=== PATIENT | male | born 1990 | race Caucasian/White ===

== ENCOUNTER 2018-07-26 17:26 | Emergency (ER) | payer SELFPAY ==
[2018-07-26 17:28] VITALS: BP 142/82; PULSE 115; RESP 17; TEMP 36.8; O2SAT 96
--- NOTE | 2018-07-26 17:44 | DI.CT_ITS ---
SYMPTOM/DIAGNOSIS: H/O SPINA BIFIDA, SCOLIOSIS, NUMBNESS AROUND RECTUM THORACIC SPINE CT: Multiple contiguous axial images of the thoracic spine were obtained following the uneventful administration of intravenous contrast material. There is normal alignment of the thoracic spine. The vertebral bodies, disc spaces and posterior elements are intact and well maintained. The bones are normally mineralized. Soft tissues are unremarkable. No enhancing lesions are seen. IMPRESSION: Negative examination of the thoracic spine. LUMBAR SPINE CT: Multiple contiguous axial images of the lumbar spine were obtained. Sagittal and coronal reformatted images were performed following the uneventful administration of intravenous contrast material. There is normal alignment of the lumbar spine. No acute fractures or subluxations are seen. Note is made of a Schmorl's node at the inferior endplate of L 1. There is a bifid spinous process at S 1. No enhancing lesions are seen. No central spinal canal or neural foraminal stenosis is present. IMPRESSION: No acute abnormality. No enhancing lesion is identified.
[2018-07-26] MEDS: Normal Saline 1,000 ML 1000 ML IV (18:05)
--- NOTE | 2018-07-26 18:09 | W.ED.GENAD ---
Discharge Plan Disposition Patient Disposition: HOME Condition: Stable Discharge Details Chief Complaint: Orthopedic Clinical Impression: Back pain, Numbness and tingling of left leg Primary Care Provider: Rafael Strong ED Provider: Greg Gracia Home Meds and New Rx's Prescriptions: No Action hydroxyzine HCl 50 mg Tablet 50 mg PO HS RF: 0 buprenorphine-naloxone [Suboxone] 4-1 mg Film 1 film BUCCAL Q24H RF: 0 Discharge Instructions Instructions: Lumbar Disc Herniation (ED), Back Pain (ED) Additional Instructions: Please immediately follow-up with your primary care provider. We will contact them for our recommendation for an MRI, however we recommend that you discuss it with them as well. If you notice any numbness or tingling in your groin area, any loss of control for having a bowel or bladder movement, any worsening of your pain, any weakness of your lower extremities please return immediately. Although it is not our recommendation that you leave at this time we will contact you with your results. If you notice any worsening of your symptoms, or any new symptoms such as vomiting, diarrhea, fever, chills, shortness of breath, chest pain, numbness, weakness, or fainting , please return immediately to the emergency department for reevaluation. Please follow up with your primary care provider as soon as possible for reassessment and reevaluation. As always, it was a pleasure participating in your medical care today. Stand Alone Forms: Work Release Referrals: Rafael Strong [Primary Care Provider] - Medical Decision Making This is a 28-year-old male who presents for evaluation of chronic anterior thigh tingling and new Martinez rectal and right posterior buttock tingling. The patient is an IV drug user, and injects regularly. He does admit to chills, but denies any fever. He does admit to difficulty getting all of his urine out unless he sits. He does have a history of spina bifida as well as scoliosis. Physical exam findings demonstrate no decreased deep tendon reflexes, no lack of sensation in the saddle region or the rectal region. Normal rectal tone. He does have 56 mL's of urine in his post void residual. He shows no weakness, and has normal sensation and movement of his lower extremities. No midline cervical thoracic or lumbar spine tenderness. Patient is tachycardic here, he does have subjective chills at home, and he is high risk with IV drug use. Were unable to get an MRI at this time. We will get a CT scan with contrast to evaluate for any acute process in the spine, as well as laboratory workup to rule in or rule out potential significant infectious etiology. We will rehydrate the patient as well. Differential is broad and may be just related to his chronic scoliosis and spina bifida as well as just peripheral nerve entrapment versus something more concerning like a spinal epidural abscess, or less likely spinal epidural hematoma.. In p.m. patient's laboratory workup has returned, he demonstrates no white count, no bandemia, electrolytes are normal, C-reactive protein is minimally elevated at 2.54, however ESR is normal. Urinalysis shows no significant signs of infection, repeat vital signs demonstrate normal vital signs. Patient continues to be afebrile. Patient CT scans have returned per virtual radiology no acute fractures or subluxations, no significant degenerative changes throughout the thoracic spine. No significant scoliosis identified. Of the lumbar spine there is evidence of non-fusion of the posterior elements of S1, possible old injury of the posterior arch of S1. No acute fractures or subluxations. Mild disc space narrowing of L5-S1 level.In spite of the patient's complaints he continues to demonstrate a normal neurologic exam with normal sensation throughout, normal rectal tone, no signs of bowel or bladder incontinence or lower extremity weakness. I feel he can be safely discharged home, however I had a left regarding starting the notable importance of close follow-up with his PCP tomorrow, as well as potential MRI ERCP who is already made referral per the patient. I had a long discussion regarding red flags for which she would immediately meet need to return, as well as for specific symptoms to suggest cauda equina syndrome and the patient understands. I have extensively reviewed the treatment plan and discharge instructions with the patient. I have addressed all patient concerns at this time. The patient was made aware of what symptoms to monitor for that would warrant a return to the emergency department. Discussed the plan with the patient, they demonstrate verbal understanding and agreement with our assessment and plan at this time. HPI General Date/Time Provider Initiated Documentation: 07/26/18 17:43. HPI Narrative: This is a pleasant 28-year-old man with a past medical history of scoliosis, spina bifida, IV drug use, who recently just got out of [facility], who presents today for evaluation of numbness and tingling around his rectum and his left anterior thigh. Patient has a history of IV drug use, however he states that he has not injected for potentially a month, however physical exam demonstrates track ramos which may give a different suggestion. The patient states that for the last month he has had occasional tingling over his left anterior thigh. It occurs most often while he is lying flat in bed. But it can also occur when he is sitting upright. It is not exacerbated or worsened with movement or activity. There does not appear to be any focal or relieving factor. He had seen a physician on an outpatient basis for this there was potential future MRI evaluation but this could never come to fruition. Patient comes in tonight though because he has noticed a brief change in his symptoms. He states that suddenly last night he had some right lower back pain with subsequent associated tingling down his right buttock and by his rectum. He states that this pain comes and goes, but is becoming more constant. He denies any bowel or bladder incontinence. He does state that over the last few weeks he has to sit down to fully urinate, and is unable to do it while standing. The patient denies any numbness tingling or weakness aside for what has been mentioned for his lower extremities. The patient denies any recent traumas, falls, or other issues. He denies any significant pain in his back, except for in the lower regions by his pelvis. Patient denies any other complaints at this time. He denies any fevers, but he does admit to nightly and regular chills. He denies any vomiting, diarrhea, chest pain, shortness of breath, headache, vision change. Related Data Home Medications Medication Instructions Recorded Confirmed buprenorphine-naloxone [Suboxone] 1 film BUCCAL Q24H 07/26/18 07/26/18 hydroxyzine HCl 50 mg PO HS 07/26/18 07/26/18 Allergies Allergy/AdvReac Type Severity Reaction Status Date / Time No Known Allergies Allergy Unverified 07/26/18 17:43 General Stated Complaint: Orthopedic SABRA: 4 Review of Systems Review of Systems All systems reviewed & are unremarkable except as noted in HPI and below PFSH Social History Smoking/Tobacco Use Status: Current every day Exam Narrative Exam Narrative: 1.Const: Well-nourished, Well-developed, appearing stated age 2.Eyes: PERRL, no conjunctival injection, and symmetrical lids. 3.ENT: Atraumatic external nose and ears. Moist MM. Neck: Symmetric, trachea midline, No thyromegaly. 4.CVS: +S1/S2, No murmurs or gallops. Peripheral pulses 2+ and equal in all extremities. Brisk capillary refill in all extremities. 5.RESP: Unlabored respiratory effort. Clear to auscultation bilaterally. No wheezes rales or rhonchi 6.GI: Soft, Nontender/Nondistended, No hepatosplenomegaly. No guarding or rebound. 7.MSK: Normocephalic/Atraumatic, Extremities w/o deformity or ttp No cyanosis or clubbing, Normal movement of all extremities. No midline tenderness to palpation over the CTLS spine. Normal ROM in flexion, extension, side bend, and rotation. Notable scoliosis on exam. Patient has +5 out of 5 strength in the lower extremities in dorsiflexion and plantarflexion, knee flexion and extension, hip flexion and extension. There is +2 over 2 dorsalis pedis pulses bilaterally. There is normal sensation to the skin with light touch at the foot, knee, and hip. Normal saddle sensation. Good sensation over the deep sural nerve area bilaterally. Rectal exam demonstrated intact rectal tone, and intact sensation around the rectum in the 10:00 3:00 5:00 and 8:00 positions. Intact bilateral normal sensation for the saddle region, anterior, lateral and posterior thighs. Reflexes are +2 over 4 in the patellar reflex bilaterally. +5 out of 5 strength in the medial, ulnar, radial nerve distribution bilaterally in the hands as well as intact light touch sensation to these dermatomes on the hands 8.Skin: Warm, Dry. No rashes or lesions. 9.Neuro: dining room tables set up attendant II-XII grossly intact. Sensation grossly intact, no focal neurologic deficits. All 6 cardinal planes of vision or fully intact. No evidence of horizontal or vertical nystagmus. The patient demonstrated a normal [id number], good dexterity. There was no evidence of dysdiadochokinesia. Patient was able to ambulate without difficulty. There was no wide-based gait. Romberg, and ekrf-[id number] are both normal on testing. Sensation was intact bilaterally as well as muscle strength bilaterally for all extremities. Patient was able to verbalize butter cup with no slurring, or miss pronunciation. 10.Psych: (AAO) x3. Appropriate mood and affect Course Vital Signs Temperature 36.8 C 07/26/18 17:28 Pulse 115 H 07/26/18 17:28 Respiratory Rate 17 07/26/18 17:28 Blood Pressure 142/82 H 07/26/18 17:28 Pulse Oximetry 96 07/26/18 17:28 Temperature 36.8 C 07/26/18 17:28 Temperature Source Temporal Artery Scan 07/26/18 17:28 Pulse 115 H 07/26/18 17:28 Respiratory Rate 17 07/26/18 17:28 Respiratory Effort 07/26/18 17:32 Blood Pressure 142/82 H 07/26/18 17:28 Blood Pressure Position Sitting 07/26/18 17:28 Pulse Oximetry 96 07/26/18 17:28 Oxygen Delivery Method Room Air 07/26/18 17:28 Oxygen Flow Rate 0 07/26/18 17:28 Pain Level 7 07/26/18 17:28 Lab/Test Results Lab/Test Results: 07/26/18 17:46 Blood Blood Culture - Pending 07/26/18 17:46 Blood Blood Culture - Pending
--- NOTE | 2018-07-26 18:12 | ED.GENADUL_ITS ---
Discharge Plan Disposition Patient Disposition: HOME Condition: Stable Discharge Details Chief Complaint: Orthopedic Clinical Impression: Back pain, Numbness and tingling of left leg Primary Care Provider: Rafael Strong ED Provider: Greg Gracia Home Meds and New Rx's Prescriptions: No Action hydroxyzine HCl 50 mg Tablet 50 mg PO HS RF: 0 buprenorphine-naloxone [Suboxone] 4-1 mg Film 1 film BUCCAL Q24H RF: 0 Discharge Instructions Instructions: Lumbar Disc Herniation (ED), Back Pain (ED) Additional Instructions: Please immediately follow-up with your primary care provider. We will contact them for our recommendation for an MRI, however we recommend that you discuss it with them as well. If you notice any numbness or tingling in your groin area , any loss of control for having a bowel or bladder movement, any worsening of your pain, any weakness of your lower extremities please return immediately. Although it is not our recommendation that you leave at this time we will contact you with your results. If you notice any worsening of your symptoms, or any new symptoms such as vomiting, diarrhea, fever, chills, shortness of breath, chest pain, numbness, weakness, or fainting , please return immediately to the emergency department for reevaluation. Please follow up with your primary care provider as soon as possible for reassessment and reevaluation. As always, it was a pleasure participating in your medical care today. Stand Alone Forms: Work Release Referrals: Rafael Strong [Primary Care Provider] - Medical Decision Making This is a 28-year-old male who presents for evaluation of chronic anterior thigh tingling and new Martinez rectal and right posterior buttock tingling. The patient is an IV drug user, and injects regularly. He does admit to chills, but denies any fever. He does admit to difficulty getting all of his urine out unless he sits. He does have a history of spina bifida as well as scoliosis. Physical exam findings demonstrate no decreased deep tendon reflexes, no lack of sensation in the saddle region or the rectal region. Normal rectal tone. He does have 56 mL's of urine in his post void residual. He shows no weakness, and has normal sensation and movement of his lower extremities. No midline cervical thoracic or lumbar spine tenderness. Patient is tachycardic here, he does have subjective chills at home, and he is high risk with IV drug use. Were unable to get an MRI at this time. We will get a CT scan with contrast to evaluate for any acute process in the spine, as well as laboratory workup to rule in or rule out potential significant infectious etiology. We will rehydrate the patient as well. Differential is broad and may be just related to his chronic scoliosis and spina bifida as well as just peripheral nerve entrapment versus something more concerning like a spinal epidural abscess, or less likely spinal epidural hematoma.. In p.m. patient's laboratory workup has returned, he demonstrates no white count , no bandemia, electrolytes are normal, C-reactive protein is minimally elevated at 2.54, however ESR is normal. Urinalysis shows no significant signs of infection, repeat vital signs demonstrate normal vital signs. Patient continues to be afebrile. Patient CT scans have returned per virtual radiology no acute fractures or subluxations, no significant degenerative changes throughout the thoracic spine. No significant scoliosis identified. Of the lumbar spine there is evidence of non-fusion of the posterior elements of S1, possible old injury of the posterior arch of S1. No acute fractures or subluxations. Mild disc space narrowing of L5-S1 level.In spite of the patient 's complaints he continues to demonstrate a normal neurologic exam with normal sensation throughout, normal rectal tone, no signs of bowel or bladder incontinence or lower extremity weakness. I feel he can be safely discharged home, however I had a left regarding starting the notable importance of close follow-up with his PCP tomorrow, as well as potential MRI ERCP who is already made referral per the patient. I had a long discussion regarding red flags for which she would immediately meet need to return, as well as for specific symptoms to suggest cauda equina syndrome and the patient understands. I have extensively reviewed the treatment plan and discharge instructions with the patient. I have addressed all patient concerns at this time. The patient was made aware of what symptoms to monitor for that would warrant a return to the emergency department. Discussed the plan with the patient, they demonstrate verbal understanding and agreement with our assessment and plan at this time. HPI General Date/Time Provider Initiated Documentation: 07/26/18 17:43 . HPI Narrative: This is a pleasant 28-year-old man with a past medical history of scoliosis, spina bifida, IV drug use, who recently just got out of [facility], who presents today for evaluation of numbness and tingling around his rectum and his left anterior thigh. Patient has a history of IV drug use, however he states that he has not injected for potentially a month, however physical exam demonstrates track ramos which may give a different suggestion. The patient states that for the last month he has had occasional tingling over his left anterior thigh. It occurs most often while he is lying flat in bed. But it can also occur when he is sitting upright. It is not exacerbated or worsened with movement or activity. There does not appear to be any focal or relieving factor. He had seen a physician on an outpatient basis for this there was potential future MRI evaluation but this could never come to fruition. Patient comes in tonight though because he has noticed a brief change in his symptoms. He states that suddenly last night he had some right lower back pain with subsequent associated tingling down his right buttock and by his rectum. He states that this pain comes and goes, but is becoming more constant. He denies any bowel or bladder incontinence. He does state that over the last few weeks he has to sit down to fully urinate, and is unable to do it while standing. The patient denies any numbness tingling or weakness aside for what has been mentioned for his lower extremities. The patient denies any recent traumas, falls, or other issues. He denies any significant pain in his back, except for in the lower regions by his pelvis. Patient denies any other complaints at this time. He denies any fevers, but he does admit to nightly and regular chills. He denies any vomiting, diarrhea, chest pain, shortness of breath, headache, vision change. Related Data Home Medications Medication Instructions Recorded Confirmed buprenorphine-naloxone [Suboxone] 1 film BUCCAL Q24H 07/26/18 07/26/18 hydroxyzine HCl 50 mg PO HS 07/26/18 07/26/18 Allergies Allergy/AdvReac Type Severity Reaction Status Date / Time No Known Allergies Allergy Unverified 07/26/18 17:43 General Stated Complaint: Orthopedic SABRA: 4 Review of Systems Review of Systems All systems reviewed & are unremarkable except as noted in HPI and below PFSH Social History Smoking/Tobacco Use Status: Current every day Exam Narrative Exam Narrative: 1.Const: Well-nourished, Well-developed, appearing stated age 2.Eyes: PERRL, no conjunctival injection, and symmetrical lids. 3.ENT: Atraumatic external nose and ears. Moist MM. Neck: Symmetric, trachea midline, No thyromegaly. 4.CVS: +S1/S2, No murmurs or gallops. Peripheral pulses 2+ and equal in all extremities. Brisk capillary refill in all extremities. 5.RESP: Unlabored respiratory effort. Clear to auscultation bilaterally. No wheezes rales or rhonchi 6.GI: Soft, Nontender/Nondistended, No hepatosplenomegaly. No guarding or rebound. 7.MSK: Normocephalic/Atraumatic, Extremities w/o deformity or ttp No cyanosis or clubbing, Normal movement of all extremities. No midline tenderness to palpation over the CTLS spine. Normal ROM in flexion, extension, side bend, and rotation. Notable scoliosis on exam. Patient has +5 out of 5 strength in the lower extremities in dorsiflexion and plantarflexion, knee flexion and extension , hip flexion and extension. There is +2 over 2 dorsalis pedis pulses bilaterally. There is normal sensation to the skin with light touch at the foot , knee, and hip. Normal saddle sensation. Good sensation over the deep sural nerve area bilaterally. Rectal exam demonstrated intact rectal tone, and intact sensation around the rectum in the 10:00 3:00 5:00 and 8:00 positions. Intact bilateral normal sensation for the saddle region, anterior, lateral and posterior thighs. Reflexes are +2 over 4 in the patellar reflex bilaterally. + 5 out of 5 strength in the medial, ulnar, radial nerve distribution bilaterally in the hands as well as intact light touch sensation to these dermatomes on the hands 8.Skin: Warm, Dry. No rashes or lesions. 9.Neuro: city planner II-XII grossly intact. Sensation grossly intact, no focal neurologic deficits. All 6 cardinal planes of vision or fully intact. No evidence of horizontal or vertical nystagmus. The patient demonstrated a normal [id number], good dexterity. There was no evidence of dysdiadochokinesia. Patient was able to ambulate without difficulty. There was no wide-based gait. Romberg, and gkkt-ba-ygsa are both normal on testing. Sensation was intact bilaterally as well as muscle strength bilaterally for all extremities. Patient was able to verbalize butter cup with no slurring, or miss pronunciation. 10.Psych: (AAO) x3. Appropriate mood and affect Course Vital Signs Temperature 36.8 C 07/26/18 17:28 Pulse 115 H 07/26/18 17:28 Respiratory Rate 17 07/26/18 17:28 Blood Pressure 142/82 H 07/26/18 17:28 Pulse Oximetry 96 07/26/18 17:28 Temperature 36.8 C 07/26/18 17:28 Temperature Source Temporal Artery Scan 07/26/18 17:28 Pulse 115 H 07/26/18 17:28 Respiratory Rate 17 07/26/18 17:28 Respiratory Effort 07/26/18 17:32 Blood Pressure 142/82 H 07/26/18 17:28 Blood Pressure Position Sitting 07/26/18 17:28 Pulse Oximetry 96 07/26/18 17:28 Oxygen Delivery Method Room Air 07/26/18 17:28 Oxygen Flow Rate 0 07/26/18 17:28 Pain Level 7 07/26/18 17:28 Lab/Test Results Lab/Test Results: 07/26/18 17:46 Blood Blood Culture - Pending 07/26/18 17:46 Blood Blood Culture - Pending
[2018-07-26 18:17] LABS: Abs Immature Grans 0.02 k/cumm (0.0-0.09); Absolute Basophil Count 0.03 k/cumm (0.0-0.2); Absolute Eosinophil Count 0.07 k/cumm (0.0-0.7); Absolute Lymphocyte Count 1.39 k/cumm (1.2-3.4); Absolute Monocyte Count 1.19 k/cumm (0.11-0.7); Absolute Neutrophil Count 7.32 k/cumm (1.2-6.7); Basophils % 0.3; Eosinophils % 0.7; HGB 15.3 g/dL (13.5-17.5); Immature Grans % 0.2; Lymphocytes % 13.9; Mean Corp. HGB Concentration 34.8 g/dL (32.0-36.0); Mean Corpuscular Hemoglobin 31.6 pg (27.0-33.0); Mean Corpuscular Volume 90.9 fL (80-95); Mean Platelet Volume 10.9 fL (8.0-11.0); Monocytes % 11.9; Platelet Count 190 x1000/uL (130-400); RBC 4.84 m/cumm (4.50-6.00); RBC Distribution Width 13.5 % (11.8-14.1); White Blood Cell Count 10.02 k/cumm (4.4-10.8)
[2018-07-26 18:31] LABS: *AMPHETAMINES SCREEN URINE Negative (Negative); *BARBITURATES SCREEN URINE Negative (Negative); *BENZODIAZEPINES SCREEN URINE Negative (Negative); Bilirubin Negative (Negative); Blood Negative (Negative); Cannabinoids THC POSITIVE (Negative); Clarity Clear; Cocaine Screen,Urine Negative (Negative); Glucose Negative (Negative); Ketones Negative (Negative); Leukocyte Esterase Negative (Negative); METHADONE URINE SCREEN Negative (Negative); Nitrite Negative (Negative); OPIATES URINE SCREEN Negative (Negative)
[2018-07-26 18:42] LABS: ALT 54 U/L (12-78); AST 34 U/L (15-37); Albumin 3.7 g/dL (3.4-5.0); Alkaline Phosphatase 93 U/L (46-116); Anion Gap 7.7 mmol/L (3-11); BUN 8 mg/dL (7-18); Bilirubin, Total 0.6 mg/dL (0.2-1.0); C-Reactive Protein 2.54 mg/dL (0.0-0.3); CO2 27.3 mmol/L (21.0-32.0); CREATININE 0.67 mg/dL (0.70-1.30); Calcium 8.9 mg/dL (8.5-10.1); Chloride 100 mmol/L (98-107); Glucose 109 mg/dL (70-100); Potassium 3.5 mmol/L (3.5-5.1); Sodium 135 mmol/L (136-145); Total Protein 7.4 g/dL (6.4-8.2)
[2018-07-26 18:56] LABS: Tricyclic Antidepressants Negative (Negative)
[2018-07-26 19:00] VITALS: BP 118/79; PULSE 102; RESP 18; TEMP 37.1; O2SAT 99
[2018-07-26 19:01] LABS: ESR 11 MM/HR (0-15)
[2018-07-26] MEDS: Omnipaque 350 MG/ML 100 ML BTL IV (20:15)
--- NOTE | 2018-07-26 20:18 | DI.VRAD_ITS ---
EXAM: CT Thoracic Spine With Intravenous Contrast CLINICAL HISTORY: 28 years old, male; Signs and symptoms; Other: HX spina bifida/skoliosis, num TECHNIQUE: Axial computed tomography images of the thoracic spine with intravenous contrast. Coronal and sagittal reformatted images were created and reviewed. CONTRAST: 100 mL of omnipaque 350 administered intravenously. COMPARISON: No relevant prior studies available. FINDINGS: Vertebrae: Unremarkable. No acute fracture. Discs/spinal canal/neural foramina: No acute findings. No spinal canal stenosis. Soft tissues: Unremarkable. IMPRESSION: No acute fractures or subluxations. No significant degenerative changes throughout the thoracic spine. No significant scoliosis identified. Dictated and Authenticated by: Bright Judge MD. Ordering:FRANCISCO ZELAYA MD
--- NOTE | 2018-07-26 20:21 | DI.VRAD_ITS ---
EXAM: CT Lumbar Spine With Intravenous Contrast CLINICAL HISTORY: 28 years old, male; Signs and symptoms; Other: HX spina bifida/skoliosis, num TECHNIQUE: Axial computed tomography images of the lumbar spine with intravenous contrast. All CT scans at this facility use at least one of these dose optimization techniques: automated exposure control; mA and/or kV adjustment per patient size (includes targeted exams where dose is matched to clinical indication); or iterative reconstruction. Coronal and sagittal reformatted images were created and reviewed. CONTRAST: 100 mL of omnipaque 350 administered intravenously. COMPARISON: No relevant prior studies available. FINDINGS: Vertebrae: L1 Schmorl's node. No acute fracture. Sacrum/coccyx: Non-fusion of the posterior elements of S1. Possible old fracture of the posterior arch of S1. Discs/spinal canal/neural foramina: Mild disc space narrowing at L5-S1 level. Soft tissues: Unremarkable. IMPRESSION: Non-fusion of the posterior elements of S1, possible old injury of the posterior arch of S1. No acute fractures or subluxations. Mild disc space narrowing at L5-S1 level. If further evaluation is desired, consider MRI. Dictated and Authenticated by: Bright Judge MD. Ordering:FRANCISCO ZELAYA MD
--- NOTE | 2018-07-27 08:36 | PDOC.ERCMPRO ---
Care Management Progress Note 07/27/18-Pt seen for numbness and leg tingling on 07/26/[address] Dale Gracia. F/U faxed to Pt's PCP, Rafael Strong at [facility].
--- NOTE | 2018-07-27 08:38 | CMPROGNOTE_ITS ---
Care Management Progress Note 07/27/18-Pt seen for numbness and leg tingling on 07/26/[address] Dale Gracia. F/ U faxed to Pt's PCP, Rafael Strong at [facility].
== END 2018-07-26 20:39 | disposition home or self-care (01) ==
PROVIDERS: Emergency Provider Student in an Organized Health Care Education/Training Program; PCP Family Medicine
DX: M54.5 Low back pain (principal); R20.2 Paresthesia of skin; F11.20 Opioid dependence, uncomplicated
CPT/HCPCS: 36415; 80053; 80307; 85652; 87040; 96360; 96361; 99285; 72132; 81003; 85025; 86140; 99284; J3490

== ENCOUNTER 2018-11-11 13:30 | Emergency (ER) | payer MEDICAID, SELFPAY ==
[2018-11-11 13:39] VITALS: BP 133/87; PULSE 89; RESP 18; TEMP 36.7; O2SAT 96
--- NOTE | 2018-11-11 15:11 | W.ED.GENAD ---
Discharge Plan Disposition Patient Disposition: HOME Condition: Stable Discharge Details Chief Complaint: Laceration Clinical Impression: Laceration of finger of left hand Primary Care Provider: Rafael Strong ED Provider: Kraig Mccarty Home Meds and New Rx's Prescriptions: Continued methylphenidate HCl [Ritalin] 10 mg Tablet 10 mg PO DAILY RF: 0 trazodone 100 mg Tablet 100 mg PO HS RF: 0 gabapentin 100 mg Capsule 200 mg PO TID RF: 0 buprenorphine-naloxone 2-0.5 mg Film 1 film BUCCAL DAILY RF: 0 buprenorphine-naloxone 8-2 mg Film 1 film BUCCAL DAILY RF: 0 Discharge Instructions Instructions: Finger Laceration (ED) Additional Instructions: Watch for any signs of infection and return immediately if these occur. Otherwise keep bandage on for 24-48 hours and then keep wound clean and dry. If you are going to be exposed to any dirty environments please make sure wound is well covered. Return to the emergency department 10-12 days for suture removal if healing appropriately. Referrals: [facility] Emergency Dept. [Outside] (Return in 10-12 days for suture. Return immediately for signs of infection) Discharge Data Discharge Date/Time-TO BE ENTERED AT DEPARTURE: 11/11/18 15:34 Medical Decision Making 2 cm laceration 30 minutes prior to arrival to the left ring finger on the palmar aspect. Patient has two-point discrimination, full range of motion, no other abnormal findings and cap refill is intact. Verbal consent was obtained for wound closure. Digital block technique was utilized and 3 mL's of 1% lidocaine without epinephrine were injected into the base of finger. Ring tourniquet was placed on the finger to help with hemostasis. Skin was cleansed with Betadine and wound was irrigated with normal saline and copious amounts were utilized. No obvious foreign body was seen with visualization of wound in bloodless field to base. No deep structure involvement but wound is into subcutaneous tissue but no bone or tendon visible or known damage. Wound was closed with 4-0 Prolene and 4 simple interrupted sutures were placed. Tourniquet was removed and appropriate hemostasis was achieved using this technique. Wound was covered with bacitracin and sterile gauze. Patient was encouraged to watch for any signs of infection and return immediately if these occur otherwise to return 10-12 days for suture removal. TDap was given HPI General Mode of arrival: ambulatory. Date/Time Provider Initiated Documentation: 11/11/18 13:53. Limitations to Documentation: no limitations. Information obtained by: RN notes reviewed. History of Present Illness 28 year old M presents to the emergency department with the chief complaint of Left ring finger laceration, described as mild, with intensity rated at 8. Quality is described as sharp, and is localized to the left and upper extremity. Patient started experiencing this minute(s) (10) and it has been constant. No relieving factors improve symptom(s), No exacerbating factors reported . Patient notes no other symptoms.. Patient did receive the following treatments prior to arrival, none Related Data Home Medications Medication Instructions Recorded Confirmed buprenorphine-naloxone 1 film BUCCAL DAILY 11/11/18 11/11/18 buprenorphine-naloxone 1 film BUCCAL DAILY 11/11/18 11/11/18 gabapentin 200 mg PO TID 11/11/18 11/11/18 methylphenidate HCl [Ritalin] 10 mg PO DAILY 11/11/18 11/11/18 trazodone 100 mg PO HS 11/11/18 11/11/18 Allergies Allergy/AdvReac Type Severity Reaction Status Date / Time No Known Allergies Allergy Unverified 11/11/18 13:36 General Stated Complaint: Laceration SABRA: 4 Review of Systems Cardiovascular Denies syncope and Denies lightheadedness Musculoskeletal Denies deformity, Denies limited range of motion and Denies numbness Integumentary/Breasts Reports as per HPI Neurologic Denies syncope and Denies numbness [facility] Social History Smoking/Tobacco Use Status: Current every day Exam Const General: cooperative and no acute distress Orientation: alert, awake and oriented x3 Limitations: mental status not altered Resp Effort & Inspection: normal respiratory effort and able to speak in complete sentences Cardio Rate: regular rate Rhythm: regular rhythm Neuro General: alert, awake, oriented x3, gait normal, tone normal, moves all extremities, normal light touch, pain and propioception and no focal motor deficits Motor: no movement abnormalities noted Sensory Exam: no sensory deficits noted Extrem Left upper extremity: hand Details: normal capillary refill, neuromotor exam normal, neurosensory exam normal, tendon exam normal and laceration (Palmar aspect of distal left ring) Course Vital Signs Temperature 36.7 C 11/11/18 13:39 Pulse 89 11/11/18 13:39 Respiratory Rate 18 11/11/18 13:39 Blood Pressure 133/87 11/11/18 13:39 Pulse Oximetry 96 11/11/18 13:39 Temperature 36.7 C 11/11/18 13:39 Temperature Source Temporal Artery Scan 11/11/18 13:39 Pulse 89 11/11/18 13:39 Respiratory Rate 18 11/11/18 13:39 Respiratory Effort Non-Labored 11/11/18 13:42 Blood Pressure 133/87 11/11/18 13:39 Blood Pressure Position Sitting 11/11/18 13:39 Pulse Oximetry 96 11/11/18 13:39 Oxygen Delivery Method Room Air 11/11/18 13:39 Oxygen Flow Rate 0 11/11/18 13:39 Pain Level 8 11/11/18 13:39
--- NOTE | 2018-11-11 15:14 | ED.GENADUL_ITS ---
Discharge Plan Disposition Patient Disposition: HOME Condition: Stable Discharge Details Chief Complaint: Laceration Clinical Impression: Laceration of finger of left hand Primary Care Provider: Rafael Strong ED Provider: Kraig Mccarty Home Meds and New Rx's Prescriptions: Continued methylphenidate HCl [Ritalin] 10 mg Tablet 10 mg PO DAILY RF: 0 trazodone 100 mg Tablet 100 mg PO HS RF: 0 gabapentin 100 mg Capsule 200 mg PO TID RF: 0 buprenorphine-naloxone 2-0.5 mg Film 1 film BUCCAL DAILY RF: 0 buprenorphine-naloxone 8-2 mg Film 1 film BUCCAL DAILY RF: 0 Discharge Instructions Instructions: Finger Laceration (ED) Additional Instructions: Watch for any signs of infection and return immediately if these occur. Otherwise keep bandage on for 24-48 hours and then keep wound clean and dry. If you are going to be exposed to any dirty environments please make sure wound is well covered. Return to the emergency department 10-12 days for suture removal if healing appropriately. Referrals: [facility] Emergency Dept. [Outside] (Return in 10-12 days for suture. Return immediately for signs of infection) Discharge Data Discharge Date/Time-TO BE ENTERED AT DEPARTURE: 11/11/18 15:34 Medical Decision Making 2 cm laceration 30 minutes prior to arrival to the left ring finger on the palmar aspect. Patient has two-point discrimination, full range of motion, no other abnormal findings and cap refill is intact. Verbal consent was obtained for wound closure. Digital block technique was utilized and 3 mL's of 1% lidocaine without epinephrine were injected into the base of finger. Ring tourniquet was placed on the finger to help with hemostasis. Skin was cleansed with Betadine and wound was irrigated with normal saline and copious amounts were utilized. No obvious foreign body was seen with visualization of wound in bloodless field to base. No deep structure involvement but wound is into subcutaneous tissue but no bone or tendon visible or known damage. Wound was closed with 4-0 Prolene and 4 simple interrupted sutures were placed. Tourniquet was removed and appropriate hemostasis was achieved using this technique. Wound was covered with bacitracin and sterile gauze. Patient was encouraged to watch for any signs of infection and return immediately if these occur otherwise to return 10-12 days for suture removal. TDap was given HPI General Mode of arrival: ambulatory . Date/Time Provider Initiated Documentation: 11/11/18 13:53 . Limitations to Documentation: no limitations . Information obtained by: RN notes reviewed . History of Present Illness 28 year old M presents to the emergency department with the chief complaint of Left ring finger laceration, described as mild, with intensity rated at 8. Quality is described as sharp, and is localized to the left and upper extremity. Patient started experiencing this minute(s) (10) and it has been constant. No relieving factors improve symptom(s), No exacerbating factors reported . Patient notes no other symptoms.. Patient did receive the following treatments prior to arrival, none Related Data Home Medications Medication Instructions Recorded Confirmed buprenorphine-naloxone 1 film BUCCAL DAILY 11/11/18 11/11/18 buprenorphine-naloxone 1 film BUCCAL DAILY 11/11/18 11/11/18 gabapentin 200 mg PO TID 11/11/18 11/11/18 methylphenidate HCl [Ritalin] 10 mg PO DAILY 11/11/18 11/11/18 trazodone 100 mg PO HS 11/11/18 11/11/18 Allergies Allergy/AdvReac Type Severity Reaction Status Date / Time No Known Allergies Allergy Unverified 11/11/18 13:36 General Stated Complaint: Laceration SABRA: 4 Review of Systems Cardiovascular Denies syncope and Denies lightheadedness Musculoskeletal Denies deformity, Denies limited range of motion and Denies numbness Integumentary/Breasts Reports as per HPI Neurologic Denies syncope and Denies numbness [facility] Social History Smoking/Tobacco Use Status: Current every day Exam Const General: cooperative and no acute distress Orientation: alert, awake and oriented x3 Limitations: mental status not altered Resp Effort & Inspection: normal respiratory effort and able to speak in complete sentences Cardio Rate: regular rate Rhythm: regular rhythm Neuro General: alert, awake, oriented x3, gait normal, tone normal, moves all extremities, normal light touch, pain and propioception and no focal motor deficits Motor: no movement abnormalities noted Sensory Exam: no sensory deficits noted Extrem Left upper extremity: hand Details: normal capillary refill, neuromotor exam normal, neurosensory exam normal, tendon exam normal and laceration (Palmar aspect of distal left ring) Course Vital Signs Temperature 36.7 C 11/11/18 13:39 Pulse 89 11/11/18 13:39 Respiratory Rate 18 11/11/18 13:39 Blood Pressure 133/87 11/11/18 13:39 Pulse Oximetry 96 11/11/18 13:39 Temperature 36.7 C 11/11/18 13:39 Temperature Source Temporal Artery Scan 11/11/18 13:39 Pulse 89 11/11/18 13:39 Respiratory Rate 18 11/11/18 13:39 Respiratory Effort Non-Labored 11/11/18 13:42 Blood Pressure 133/87 11/11/18 13:39 Blood Pressure Position Sitting 11/11/18 13:39 Pulse Oximetry 96 11/11/18 13:39 Oxygen Delivery Method Room Air 11/11/18 13:39 Oxygen Flow Rate 0 11/11/18 13:39 Pain Level 8 11/11/18 13:39
== END 2018-11-11 15:34 | disposition home or self-care (01) ==
PROVIDERS: Emergency Provider Nurse Practitioner Family; PCP Family Medicine
DX: S61.213A Laceration without foreign body of left middle finger without damage to nail, initial encounter (principal); W26.8XXA Contact with other sharp object(s), not elsewhere classified, initial encounter
CPT/HCPCS: 12001; 90471

== ENCOUNTER 2019-03-08 09:02 | Outpatient (CLI) | payer MEDICAID, SELFPAY ==
[2019-03-08 10:13] LABS: Abs Immature Grans 0.01 k/cumm (0.0-0.09); Absolute Basophil Count 0.04 k/cumm (0.0-0.2); Absolute Eosinophil Count 0.12 k/cumm (0.0-0.7); Absolute Lymphocyte Count 1.91 k/cumm (1.2-3.4); Absolute Monocyte Count 0.76 k/cumm (0.11-0.7); Absolute Neutrophil Count 4.21 k/cumm (1.2-6.7); Basophils % 0.6; Eosinophils % 1.7; HCT 44.1 % (40.0-50.0); HGB 14.7 g/dL (13.5-17.5); Immature Grans % 0.1; Lymphocytes % 27.1; Mean Corp. HGB Concentration 33.3 g/dL (32.0-36.0); Mean Corpuscular Hemoglobin 31.3 pg (27.0-33.0); Mean Platelet Volume 11.2 fL (8.0-11.0); Monocytes % 10.8; Neutrophils % 59.7; Platelet Count 216 x1000/uL (130-400); RBC 4.69 m/cumm (4.50-6.00); RBC Distribution Width 14.3 % (11.8-14.1); White Blood Cell Count 7.05 k/cumm (4.4-10.8)
[2019-03-08 11:24] LABS: ALT 38 U/L (12-78); AST 24 U/L (15-37); Albumin 3.8 g/dL (3.4-5.0); Alkaline Phosphatase 89 U/L (46-116); Anion Gap 8.8 mmol/L (3-11); BUN 16 mg/dL (7-18); Bilirubin, Total 0.5 mg/dL (0.2-1.0); CO2 27.2 mmol/L (21.0-32.0); CREATININE 0.75 mg/dL (0.70-1.30); Calcium 9.4 mg/dL (8.5-10.1); Chloride 103 mmol/L (98-107); Glucose 92 mg/dL (70-100); Potassium 4.3 mmol/L (3.5-5.1); Sodium 139 mmol/L (136-145); Total Protein 7.2 g/dL (6.4-8.2)
[2019-03-09 08:53] LABS: HBs Antibody, Quant 63.7 mIU/mL; Hepatitis B Surface Ab Positive
[2019-03-09 08:56] LABS: Hepatitis B Surface Ag Negative (NEGAT)
[2019-03-09 09:48] LABS: HIV-1/2 Ag & Ab Screen Negative (NEGAT)
[2019-03-09 10:00] LABS: Syphilis Serology (RPR) Negative (Negative)
[2019-03-09 10:37] LABS: Hep A Total Ab w Rflx IgM Negative (NEGAT); Hep B Core Antibody Negative (NEGAT)
[2019-03-10 15:37] LABS: TB Interpretation Negative (NEGAT); TB1 Ag minus Nil 0.02 IU/mL; TB2 Ag minus Nil 0.02 IU/mL
== END 2019-03-08 09:22 ==
PROVIDERS: PCP Family Medicine; Visit Provider Nurse Practitioner Family
DX: B18.2 Chronic viral hepatitis C (principal); F11.20 Opioid dependence, uncomplicated; Z79.899 Other long term (current) drug therapy; R60.0 Localized edema; Z11.4 Encounter for screening for human immunodeficiency virus [HIV]
CPT/HCPCS: 36415; 80053; 86704; 86706; 86709; 87340; 87389; 85025; 86480; 86592; 87522

== ENCOUNTER 2019-05-09 09:09 | Emergency (ER) | payer MEDICAID, SELFPAY ==
--- NOTE | 2019-05-09 09:13 | NUR.NOTE ---
Nursing Note: pt has 2 cm laceration on left hand fist digit. pt stat last tdap was 3-4 months ago cut on clean metal
[2019-05-09 09:14] VITALS: BP 134/87; PULSE 110; RESP 17; TEMP 37
--- NOTE | 2019-05-09 09:21 | ED.GENADUL_ITS ---
Discharge Plan Disposition Patient Disposition: HOME Condition: Good Discharge Details Chief Complaint: Laceration Clinical Impression: Laceration of thumb Primary Care Provider: Rafael Strong ED Provider: Angeli Gilman Home Meds and New Rx's Prescriptions: Continued methylphenidate HCl [Ritalin] 10 mg Tablet 10 mg PO DAILY RF: 0 trazodone 100 mg Tablet 100 mg PO HS RF: 0 gabapentin 100 mg Capsule 200 mg PO TID RF: 0 buprenorphine-naloxone 2-0.5 mg Film 1 film BUCCAL DAILY RF: 0 buprenorphine-naloxone 8-2 mg Film 1 film BUCCAL DAILY RF: 0 methadone 40 mg Tablet,Soluble 40 mg PO DAILY RF: 0 Discharge Instructions Instructions: Laceration (ED) Additional Instructions: Please keep wound clean, dry, covered. Keep current dressing on for the next 24 hours. After that, may cover with bandaid. Use splint provided to help immobilize to help with discomfort. Tylenol and/or Ibuprofen as needed for pain. Please monitor for signs of infection including redness, warmth, drainage, increased pain, fevers/chills. If you develop these or other new/worsening symptoms please seek care urgently once again. May wash with running water and soap but please do not submerge. Return in 7 days for suture removal. Stand Alone Forms: Work Release Referrals: Rafael Strong [Primary Care Provider] - Medical Decision Making Patient 28-year-old [id number] male presenting today with chief complaint of laceration to the left thumb. He reports a prior to arrival he was attempting to take a part bug beds when he slipped with his wrench and the hand struck a piece of metal. He has a 1.5 cm irregularly-shaped laceration to the radial side of the thumb proximal to the IP joint. No sensory deficits are noted on exam. No ligamentous injury on exam. Patient's tetanus is up-to-date. Plan to close sutures. Patient I discussed risk/benefits as well as inspected procedural steps. He was understanding and wished to proceed peer Procedure: Using standard sterile technique, a digital block was performed using 1% lidocaine plain. 4 cc was infiltrated. The sufficiently anesthetized the area. Wound was then copiously irrigated with sterile saline and explored to base in a bloodless field. No foreign body or debris was noted. Attention was then turned to closure. #3 simple interrupted stitches were placed using 6-0 nylon. Patient tolerated this procedure well and a dry sterile bandage placed Patient I discussed wound care in depth. We discussed signs symptoms of infection when to seek care urgently once again. We discussed activities that he should avoid to the hand. He will be discharged home with a foam and metal splint to help with discomfort. As it is not over the joint, do not feel formal immobilization is needed but rather this is to help with discomfort. Encouraged elevation. Tylenol and ibuprofen as needed for discomfort. All his questions and concerns were addressed and he is in agreement this plan HPI General Mode of arrival: ambulatory . Date/Time Provider Initiated Documentation: 05/09/19 09:13 . Limitations to Documentation: no limitations . Information obtained by: patient and RN notes reviewed . History of Present Illness 28 year old M presents to the emergency department with the chief complaint of left thumb laceration, described as mild, with intensity rated at 3. Quality is described as aching, and is localized to the left and upper extremity. Patient reports no radiation. Patient started experiencing this m inute(s) and it has been constant. No relieving factors improve symptom(s), No exacerbating factors reported . Patient notes no other symptoms.. Patient did receive the following treatments prior to arrival, none Related Data Home Medications Medication Instructions Recorded Confirmed buprenorphine-naloxone 1 film BUCCAL DAILY 11/11/18 05/09/19 buprenorphine-naloxone 1 film BUCCAL DAILY 11/11/18 05/09/19 gabapentin 200 mg PO TID 11/11/18 05/09/19 methylphenidate HCl [Ritalin] 10 mg PO DAILY 11/11/18 05/09/19 trazodone 100 mg PO HS 11/11/18 05/09/19 methadone 40 mg PO DAILY 05/09/19 05/09/19 Allergies Allergy/AdvReac Type Severity Reaction Status Date / Time No Known Allergies Allergy Unverified 05/09/19 09:16 General Stated Complaint: Laceration SABRA: 4 Review of Systems Constitutional Reports as per HPI, Denies chills and Denies fever(s) Musculoskeletal Reports as per HPI Integumentary/Breasts Reports as per HPI Neurologic Reports as per HPI, Denies sensory deficit and Denies paresthesias PFSH Social History Smoking/Tobacco Use Status: Current every day Tobacco Type: cigarettes Alcohol Intake: current Alcohol Intake frequency: a few times a week Alcohol type: beer and wine Drug use: Daily Substance use type: does not use and former substance user Do you feel safe at home: Yes Do you feel safe in your relationship?: Yes Exam Const General: cooperative, healthy appearing, comfortable, no acute distress and well developed Nutritional Appearance: average body habitus and well nourished Orientation: alert and awake Resp Effort & Inspection: normal respiratory effort, able to speak in complete sentences and no respiratory distress Cardio Rate: regular rate Rhythm: regular rhythm Skin Trauma: laceration (1.5 irregular laceration proximal to IP joint radial side of finger) Neuro General: alert and awake Cognition: normal cognition Speech: speech normal Gait: normal gait Sensory Exam: no sensory deficits noted Extrem Left upper extremity: full ROM, normal capillary refill and hand Details: normal capillary refill, neuromotor exam normal, neurosensory exam normal, tendon exam normal, tenderness, no swelling and laceration; abnormal to inspection (laceration as above) Psych Appearance: grossly normal and well kempt Mental Status: mental status grossly normal Speech and Movement: speech and movement normal Course Vital Signs Temperature 37.0 C 05/09/19 09:14 Pulse 110 H 05/09/19 09:14 Respiratory Rate 17 05/09/19 09:14 Blood Pressure 134/87 05/09/19 09:14 Temperature 37.0 C 05/09/19 09:14 Temperature Source Skin 05/09/19 09:14 Pulse 110 H 05/09/19 09:14 Respiratory Rate 17 05/09/19 09:14 Respiratory Effort 05/09/19 09:17 Blood Pressure 134/87 05/09/19 09:14 Blood Pressure Position Supine 05/09/19 09:14 Oxygen Delivery Method Room Air 05/09/19 09:14 Oxygen Flow Rate 0 05/09/19 09:14 Pain Level 3 05/09/19 09:14
[2019-05-09] MEDS: Lidocaine 1% Multi-Dose 50 ML VIAL IJ (09:47)
[2019-05-09 10:05] VITALS: BP 134/87; PULSE 110; RESP 17; TEMP 37; O2SAT 98
== END 2019-05-09 10:06 | disposition home or self-care (01) ==
LOC: ER 10:05
PROVIDERS: Emergency Provider Physician Assistant; PCP Family Medicine
DX: S61.012A Laceration without foreign body of left thumb without damage to nail, initial encounter (principal); W45.8XXA Other foreign body or object entering through skin, initial encounter
CPT/HCPCS: 12001

== ENCOUNTER 2019-05-16 07:40 | Emergency (ER) | payer MEDICAID, SELFPAY ==
[2019-05-16 07:43] VITALS: BP 105/75; PULSE 116; RESP 16; TEMP 37; O2SAT 96
--- NOTE | 2019-05-16 07:52 | ED.GENADUL_ITS ---
Discharge Plan Disposition Patient Disposition: HOME Condition: Stable Discharge Details Chief Complaint: SutureRem Clinical Impression: Visit for suture removal Primary Care Provider: Rafael Strong ED Provider: Liseth Geiger Home Meds and New Rx's Prescriptions: Continued methylphenidate HCl [Ritalin] 10 mg Tablet 10 mg PO DAILY RF: 0 trazodone 100 mg Tablet 100 mg PO HS RF: 0 gabapentin 100 mg Capsule 200 mg PO TID RF: 0 methadone 40 mg Tablet,Soluble 40 mg PO DAILY RF: 0 Discharge Instructions Instructions: Stitches Removal (ED) Additional Instructions: Keep wound clean and dry. Cover with topical antibiotic ointment 1-2 times daily. Follow-up with your primary care doctor in 1 week for reevaluation. Return to the emergency department if you develop any worsening or new concerning symptoms. Discharge Data Discharge Date/Time-TO BE ENTERED AT DEPARTURE: 05/16/19 07:58 Discharge Physician: Liseth Geiger Medical Decision Making 29-year-old male who presents for suture removal of left thumb after sutures placed 7 days ago. Wound is healing well other than some minimal erythema around site. No drainage. [address] Afebrile. Patient appears nontoxic. Neurovascularly intact. Normal range of motion. 3 sutures removed by nurse at bedside. Topical antibiotic ointment and dressing placed. Patient was instructed that the wound is most vulnerable at this time once sutures removed and to keep area clean and dry and to apply topical antibiotic ointment to the area 1-2 times daily. He is advised to cover when risk of contamination but otherwise keep open to the air to allow to heal. He is advised to follow-up with his primary care doctor and to return here at any time if worse. HPI General Mode of arrival: ambulatory . Date/Time Provider Initiated Documentation: 05/16/19 07:52 . Limitations to Documentation: no limitations . Information obtained by: patient . HPI Narrative: Patient is a 29-year-old male who presents for suture removal of left thumb after sutures placed 7 days ago. Patient states he was lifting a bunk bed when his hand slipped and caught the metal on the bed. He had 3 sutures placed 1 week ago. He denies any fever or any acute complaints. Tetanus up-to-date. Related Data Home Medications Medication Instructions Recorded Confirmed gabapentin 200 mg PO TID 11/11/18 05/16/19 methylphenidate HCl [Ritalin] 10 mg PO DAILY 11/11/18 05/16/19 trazodone 100 mg PO HS 11/11/18 05/16/19 methadone 40 mg PO DAILY 05/09/19 05/16/19 Allergies Allergy/AdvReac Type Severity Reaction Status Date / Time No Known Allergies Allergy Unverified 05/16/19 07:47 General Stated Complaint: SutureRem SABRA: 5 Review of Systems Review of Systems All systems reviewed & are unremarkable except as noted in HPI and below Constitutional Denies chills and Denies fever(s) [facility] Medical History Asthma (Chronic) IV drug abuse (Acute) Narcotic abuse (Chronic) Surgical History No significant past surgical history (Acute) Social History Smoking/Tobacco Use Status: Current every day Tobacco Type: cigarettes Alcohol Intake: current Alcohol Intake frequency: a few times a week Alcohol type: beer and wine Drug use: Daily Substance use type: does not use and former substance user Do you feel safe at home: Yes Do you feel safe in your relationship?: Yes Exam Const General: cooperative, healthy appearing and no acute distress HENMT Head: normal to inspection Mouth: oral mucosae normal Eyes General: appearance normal, both eyes and all related structures Neck Neck: normal visual inspection Resp Effort & Inspection: normal respiratory effort and able to speak in complete sentences Cardio Rate: regular rate Skin General skin exam: no rashes or lesions noted Neuro General: alert, awake and oriented x3 Motor: muscle tone normal throughout Other: Motor/sensory grossly intact. Extrem Hand/finger images: 1. 1.5 cm laceration with [address] on medial thumb. Minimal erythema surrounding wound. Medial edges of wound open but no drainage. There is no fluctuance, induration or bleeding. Psych Appearance: grossly normal Affect: normal affect Course Vital Signs Temperature 98.6 F 05/16/19 07:43 Pulse 116 H 05/16/19 07:43 Respiratory Rate 16 05/16/19 07:43 Blood Pressure 105/75 05/16/19 07:43 Pulse Oximetry 96 05/16/19 07:43 Temperature 98.6 F 05/16/19 07:43 Temperature Source Temporal Artery Scan 05/16/19 07:43 Pulse 116 H 05/16/19 07:43 Respiratory Rate 16 05/16/19 07:43 Blood Pressure 105/75 05/16/19 07:43 Blood Pressure Position Sitting 05/16/19 07:43 Pulse Oximetry 96 05/16/19 07:43 Oxygen Delivery Method Room Air 05/16/19 07:43 Oxygen Flow Rate 0 05/16/19 07:43 Pain Level 0 05/16/19 07:43
== END 2019-05-16 07:58 | disposition home or self-care (01) ==
PROVIDERS: Emergency Provider Physician Assistant; PCP Family Medicine
DX: S61.012D Laceration without foreign body of left thumb without damage to nail, subsequent encounter (principal); W45.8XXD Other foreign body or object entering through skin, subsequent encounter; Z48.02 Encounter for removal of sutures

== ENCOUNTER 2019-06-26 17:53 | Emergency (ER) | payer MEDICAID, SELFPAY ==
[2019-06-26 18:02] VITALS: BP 132/69; PULSE 80; RESP 16; TEMP 36.5; O2SAT 96
--- NOTE | 2019-06-26 18:17 | ED.GENADUL_ITS ---
Discharge Plan Disposition Patient Disposition: HOME Condition: Fair Discharge Details Chief Complaint: DentalOral Clinical Impression: Abscess, dental Primary Care Provider: Rafael Strong ED Provider: Angeli Gilman Home Meds and New Rx's Prescriptions: New penicillin V potassium 500 mg tablet 500 mg PO QID Qty: 25 RF: 0 Continued methylphenidate HCl [Ritalin] 10 mg Tablet 10 mg PO DAILY RF: 0 trazodone 100 mg Tablet 100 mg PO HS RF: 0 gabapentin 100 mg Capsule 200 mg PO TID RF: 0 methadone 40 mg Tablet,Soluble 40 mg PO DAILY RF: 0 Discharge Instructions Instructions: Penicillin V (By mouth), Benzocaine (By mouth), Dental Abscess (ED) Additional Instructions: Encourage hydration. Please continue with and ibuprofen as needed for discomfort. You may use topical Hurricaine gel every 6 hours as needed for discomfort. Please take penicillin as prescribed, take 500 mg every 6 hours. You will need definitive care with a dentist for this infection will recur, attached a list of local dentist. Please call to schedule appointment. If you develop fever/chills, increased swelling, increased pain or other new/worsening symptoms please seek care urgently once again. Referrals: Rafael Strong [Primary Care Provider] - Medical Decision Making Patient is a 29-year-old male presenting today with chief complaint of right upper dental pain that began a few days ago. He reports that he has noted an area of swelling is concerned that he is developing an abscess. Patient has generally poor dentition with multiple fractured and decaying teeth. Does not see dentist routinely. Reports that he has called and has not been able to appointment as of yet. Denies fevers or chills. On exam, he is 1 cm abscess to the buccal side of the #6 tooth. No pain along the lingual side. Remaining oropharynx exam is concerning for the numerous caries patient has. No trismus, other areas of swelling. He appears nontoxic, vital signs within normal limits. Feel the patient requires drainage at this time. Discussed risk/benefits as well as expected procedural steps with the patient. He voiced understanding and wished to proceed. Please see procedure note. He tolerated this well. Patient began on penicillin. Encourage hydration. Will continue Tylenol and ibuprofen as needed for discomfort. He is given strict return precautions. He will call dentist tomorrow to schedule follow-up appointment. All his concerns were addressed and he is in agreement this plan. HPI General Mode of arrival: ambulatory . Date/Time Provider Initiated Documentation: 06/26/19 18:16 . Limitations to Documentation: no limitations . Information obtained by: patient, family and RN notes reviewed . History of Present Illness 29 year old M presents to the emergency department with the chief complaint of right upper dental pain, described as severe and similar to prior episodes, with intensity rated at 10. Quality is described as stabbing, and is localized to the mouth. Patient reports no radiation. Patient started experiencing this day(s) and it has been constant. No relieving factors improve symptom(s), No exacerbating factors reported . Patient notes no other symptoms.; denies diaphoresis, fever/chills, headaches, nausea/vomiting and rash. Patient did receive the following treatments prior to arrival, none Related Data Home Medications Medication Instructions Recorded Confirmed gabapentin 200 mg PO TID 11/11/18 06/26/19 methylphenidate HCl [Ritalin] 10 mg PO DAILY 11/11/18 06/26/19 trazodone 100 mg PO HS 11/11/18 06/26/19 methadone 40 mg PO DAILY 05/09/19 06/26/19 penicillin V potassium 500 mg PO QID #25 tab 06/26/19 Previous Rx's Medication Instructions Recorded penicillin V potassium 500 mg PO QID #25 tab 06/26/19 Allergies Allergy/AdvReac Type Severity Reaction Status Date / Time No Known Allergies Allergy Unverified 06/26/19 18:05 General Stated Complaint: DentalOral SABRA: 3 Review of Systems Constitutional Reports as per HPI, Denies chills, Denies fatigue, Denies fever(s), Denies headache(s) and Denies poor appetite Eyes Denies change in vision and Denies irritation ENT Reports as per HPI, Reports dental pain, Denies dysphagia, Denies dizziness, Denies dry mouth, Denies ear discharge, Denies otalgia, Reports facial pain, Denies headache(s), Denies hoarseness, Denies lip swelling, Denies nasal congestion, Denies odynophagia and Denies sore throat Cardiovascular Reports as per HPI and Denies chest pain Respiratory Reports as per HPI and Denies cough Gastrointestinal Reports as per HPI, Denies dysphagia, Denies nausea, Denies odynophagia and Denies vomiting Integumentary/Breasts Reports as per HPI, Denies erythema, Denies rash and Denies skin pain Neurologic Reports as per HPI, Denies dizziness and Denies headache(s) Endocrine Denies fatigue Allergic/Immunologic Denies lip swelling [facility] Medical History Asthma (Chronic) IV drug abuse (Acute) Narcotic abuse (Chronic) Surgical History No significant past surgical history (Acute) Social History Smoking/Tobacco Use Status: Current every day Tobacco Type: cigarettes Alcohol Intake: current Alcohol Intake frequency: a few times a week Alcohol type: beer and wine Drug use: Daily Substance use type: does not use and former substance user Do you feel safe at home: Yes Do you feel safe in your relationship?: Yes Exam Const General: cooperative, healthy appearing, comfortable, no acute distress, well developed and well groomed Nutritional Appearance: average body habitus and well nourished Orientation: alert and awake [facility] Head: normal to inspection, normocephalic and atraumatic Ears: hearing grossly normal bilaterally, external ears normal and TM's normal bilaterally General nose exam: external nose normal and nares normal Face and sinus: normal facial exam, sinuses nontender and face symmetric Mouth: lip normal, tongue normal, oropharynx normal, moist mucous membranes, no muffled voice and no trismus Teeth and gingiva: abnormal dentition, abnormal gingiva (patient has a well defined 1cm abscess over the #6th tooth along buccal nikko), caries and poor dentition (multiple broken and black) Throat: posterior oropharynx normal, tonsils normal and uvula midline Eyes General: appearance normal, both eyes and all related structures Neck Neck: normal visual inspection, full ROM, no lymphadenopathy, supple and no anterior neck swelling Resp Effort & Inspection: normal respiratory effort, able to speak in complete sentences and no respiratory distress Auscultation: clear to auscultation bilaterally, no rales, no rhonchi and no wheezes Cardio Rate: regular rate Rhythm: regular rhythm Heart Sounds: S1 normal and S2 normal Skin General skin exam: no rashes or lesions noted Trauma: no lacerations or abrasions Neuro General: alert and awake Cognition: normal cognition Speech: speech normal Gait: normal gait Psych Appearance: grossly normal and well kempt Mental Status: mental status grossly normal Speech and Movement: speech and movement normal Course Vital Signs Temperature 36.5 C 06/26/19 18:02 Pulse 80 06/26/19 18:02 Respiratory Rate 16 06/26/19 18:02 Blood Pressure 132/69 06/26/19 18:02 Pulse Oximetry 96 06/26/19 18:02 Temperature 36.5 C 06/26/19 18:02 Temperature Source Temporal Artery Scan 06/26/19 18:02 Pulse 80 06/26/19 18:02 Respiratory Rate 16 06/26/19 18:02 Respiratory Effort 06/26/19 18:07 Blood Pressure 132/69 06/26/19 18:02 Blood Pressure Position Sitting 06/26/19 18:02 Pulse Oximetry 96 06/26/19 18:02 Oxygen Delivery Method Room Air 06/26/19 18:02 Oxygen Flow Rate 0 06/26/19 18:02 Pain Level 10 06/26/19 18:02 Procedures Abscess I/D Site: Other (dental) Side (if applicable): Right Sedation/analgesia: None Local Anesthetic: Other Anesthetic (topical bupivicaine) Technique: Incised with #11 Blade Amount of fluid expressed (mL): 4 Irrigation: No Packing used?: None Complications: Other (none)
[2019-06-26] MEDS: Benzocaine 20% Gel 30 GM JAR MM (18:25)
[2019-06-26] MEDS: Penicillin V POTASSIUM 500 MG TAB 1000 MG PO (18:36)
[2019-06-26] MEDS: Penicillin V POTASSIUM 500 MG TAB PO (18:36)
== END 2019-06-26 19:10 | disposition home or self-care (01) ==
PROVIDERS: Emergency Provider Physician Assistant; PCP Family Medicine
DX: K04.7 Periapical abscess without sinus (principal)
CPT/HCPCS: 99283

== ENCOUNTER 2019-08-30 14:49 | Emergency (ER) | payer MEDICAID, SELFPAY ==
[2019-08-30 14:52] VITALS: BP 130/75; PULSE 99; RESP 15; TEMP 37.2; O2SAT 97
--- NOTE | 2019-08-30 15:35 | ED.GENADUL_ITS ---
Discharge Plan Disposition Patient Disposition: HOME Condition: Stable Discharge Details Chief Complaint: EarProblem Clinical Impression: Right ear pain Primary Care Provider: Rafael Strong ED Provider: Liseth Geiger Home Meds and New Rx's Prescriptions: Continued methylphenidate HCl [Ritalin] 10 mg Tablet 10 mg PO DAILY RF: 0 trazodone 100 mg Tablet 100 mg PO HS RF: 0 gabapentin 100 mg Capsule 200 mg PO TID RF: 0 methadone 5 mg/5 mL Solution 95 mg PO DAILY RF: 0 Discharge Instructions Instructions: Otitis Media (ED), Earache (ED) Additional Instructions: You may have an early ear infection which may be viral or bacterial. If this is a viral infection, often this can resolve with symptomatic treatment such as ibuprofen and Tylenol. Take ibuprofen 600 mg every 6 hours and Tylenol 500 mg every 4 hours as needed and directed for pain. If you have no relief or worsening of symptoms in the next 1 to 2 days, you can start your penicillin that you have at home. Follow-up with your primary care doctor next week for reevaluation. Return to the emergency department if you develop any worsening or new concerning symptoms. Discharge Data Discharge Date/Time-TO BE ENTERED AT DEPARTURE: 08/30/19 15:43 Discharge Physician: Liseth Geiger Medical Decision Making 29-year-old male with right ear pain for the past 2 days. Also admits to intermittent headache, runny nose. He appears nontoxic, afebrile. Right TM mildly dull and faintly erythematous but no effusion or discharge. Remainder of ENT exam within normal limits. Discussed with patient that he could have a possible early otitis media which may be viral. He is advised to follow symptom medic treatment including Motrin Tylenol rest and fluids for the next few days. He states he has a new prescription for penicillin at home which he did not take. He is advised to take his penicillin 500 mg 1 tab p.o. 3 times daily x7 days if symptoms do not improve or worsen over the next 2 days. He is advised to follow-up with his scheduled appoint with his primary care doctor tomorrow and to return here if worse. HPI General Mode of arrival: ambulatory . Date/Time Provider Initiated Documentation: 08/30/19 14:49 . Limitations to Documentation: no limitations . Information obtained by: patient . History of Present Illness described as moderate, Quality is described as aching and sharp, and is localized to the head (Right ear). Patient started experiencing this day(s) (2) and it has been constant. No relieving factors improve symptom(s), No exacerbating factors reported . Patient notes headaches; denies cough, nausea/vomiting and rash. Patient did receive the following treatments prior to arrival, none Related Data Home Medications Medication Instructions Recorded Confirmed gabapentin 200 mg PO TID 11/11/18 06/26/19 methylphenidate HCl [Ritalin] 10 mg PO DAILY 11/11/18 06/26/19 trazodone 100 mg PO HS 11/11/18 08/30/19 methadone 95 mg PO DAILY 08/30/19 08/30/19 Allergies Allergy/AdvReac Type Severity Reaction Status Date / Time No Known Allergies Allergy Unverified 08/30/19 14:56 General Stated Complaint: EarProblem SABRA: 5 Review of Systems All systems reviewed & are unremarkable except as noted in HPI and below Constitutional Constitutional: Reports as per HPI, Denies chills and Denies fever(s) Eyes Eyes: Denies blurry vision ENT Ears, Nose, Mouth, and Throat: Denies dizziness, Reports otalgia, Denies sore throat and Denies throat swelling Cardiovascular Cardiovascular: Denies chest pain and Denies dyspnea Respiratory Respiratory: Denies cough and Denies dyspnea Gastrointestinal Gastrointestinal: Denies abdominal pain, Denies diarrhea and Denies vomiting Genitourinary Genitourinary: Denies hematuria and Denies dysuria Musculoskeletal Musculoskeletal: Denies back pain and Denies numbness Integumentary/Breasts Skin/Breast: Denies lesions and Denies rash Neurologic Neurologic: Denies dizziness, Denies focal weakness and Denies numbness Allergic/Immunologic Allergic/Immunologic: Denies throat swelling [facility] Medical History Asthma (Chronic) IV drug abuse (Acute) Narcotic abuse (Chronic) Surgical History No significant past surgical history (Acute) Social History Smoking/Tobacco Use Status: Current every day Tobacco Type: cigarettes Alcohol Intake: former Substance use type: does not use and former substance user Details: on methadone Do you feel safe at home: Yes Do you feel safe in your relationship?: Yes Exam Const General: cooperative, healthy appearing and no acute distress HENMT Head: normal to inspection Ears: hearing grossly normal bilaterally, external ears normal, EAC's normal and other (Right TM slightly dull, faintly erythematous; left TM within normal limits) General nose exam: external nose normal Face and sinus: normal facial exam Mouth: oral mucosae normal Teeth and gingiva: poor dentition Throat: posterior oropharynx normal, uvula midline and no peritonsillar masses Eyes General: appearance normal, both eyes and all related structures Neck Neck: normal visual inspection, no lymphadenopathy, no meningeal signs, trachea midline, supple, no anterior neck swelling and No submandibular swelling Resp Effort & Inspection: normal respiratory effort and able to speak in complete sentences Cardio Rate: regular rate Skin General skin exam: no rashes or lesions noted Neuro General: alert, awake and oriented x3 Motor: muscle tone normal throughout Extrem General: normal to inspection and full ROM Psych Appearance: grossly normal Affect: normal affect Course Vital Signs Vital signs: Vital Signs Temperature 99.0 F 08/30/19 14:52 Pulse 99 H 08/30/19 14:52 Respiratory Rate 15 08/30/19 14:52 Blood Pressure 130/75 08/30/19 14:52 Pulse Oximetry 97 08/30/19 14:52 Temperature 99.0 F 08/30/19 14:52 Temperature Source Skin 08/30/19 14:52 Pulse 99 H 08/30/19 14:52 Respiratory Rate 15 08/30/19 14:52 Respiratory Effort Non-Labored 08/30/19 14:54 Blood Pressure 130/75 08/30/19 14:52 Blood Pressure Position Sitting 08/30/19 14:52 Pulse Oximetry 97 08/30/19 14:52 Oxygen Delivery Method Room Air 08/30/19 14:52 Oxygen Flow Rate 0 08/30/19 14:52 Pain Level 7 08/30/19 14:55
== END 2019-08-30 15:44 | disposition home or self-care (01) ==
PROVIDERS: Emergency Provider Physician Assistant; PCP Family Medicine
DX: H92.01 Otalgia, right ear (principal)
CPT/HCPCS: 99283

== ENCOUNTER 2019-11-02 07:01 | Outpatient (CLI) | payer OTHER, MEDICAID, SELFPAY ==
[2019-11-03] MEDS: Omnipaque 350 MG/ML 100 ML BTL IJ (09:54)
--- NOTE | 2019-11-03 09:55 | DI.CT_ITS ---
EXAM: CT ABDOMEN PELVIS WO/W CLINICAL HISTORY: FEVER, HEMATURIA,INCREASED FREQUENCY, ? KIDNEY STONE TECHNIQUE: CT examination of the abdomen and pelvis was performed utilizing CT urogram protocol. COMPARISON: No exams were available for comparison FINDINGS: Images obtained through the lung bases are unremarkable. Liver, spleen, and pancreas are unremarkab le. Gallbladder and bile ducts are CT normal. Abdominal aorta is of normal diameter and no major va scular abnormality is seen. No significant abdominal wall hernia seen. No significant abdominal or pelvic adenopathy. Appendix is normal. No focal bowel pathology identified. There is a calculus in distal 3rd of the left ureter measuring about 5 millimeters in diameter with m ild to moderate resultant left hydronephrosis and hydroureter. There are a couple of nonobstructing right renal calculi as well. I would note that the 7 minute delayed films show opacified urine reach ing the bladder bilaterally indicating that the left ureteral obstruction is a partial obstruction. IMPRESSION: Right nonobstructing nephrolithiasis. Left ureteral partial obstruction secondary to 5 millimeter ureteral calculus in the distal 3rd of th e ureter.
== END 2019-11-02 07:21 ==
PROVIDERS: PCP Family Medicine; Visit Provider Nurse Practitioner Adult Health
DX: R50.9 Fever, unspecified (principal); R31.9 Hematuria, unspecified; R35.0 Frequency of micturition; N20.0 Calculus of kidney; N20.1 Calculus of ureter
CPT/HCPCS: 74178; J3490

== ENCOUNTER 2019-12-26 02:08 | Outpatient (CLI) | payer OTHER, SELFPAY ==
--- NOTE | 2019-12-26 | DI.US_ITS ---
EXAM: US RENAL CLINICAL HISTORY: LT FLANK PAIN, PARTIALLY OBSTRUCTING STONE,HYDRONEPHROSIS and hydroureter TECHNIQUE: Ultrasound performed using standard protocol. COMPARISON: CT ABDOMEN PELVIS WO/W from 11/03/2019 FINDINGS: The right kidney measures 9.7 cm in length. The left kidney measures 9.3 cm in length. No hydroneph rosis is seen. No renal calculi are visualized. Tiny calcifications were seen on the previous CT. The bladder was empty. IMPRESSION: No evidence of hydronephrosis. DATA REPOSITORY:
== END 2019-12-26 02:28 ==
PROVIDERS: PCP Family Medicine; Visit Provider Nurse Practitioner Adult Health
DX: R10.32 Left lower quadrant pain (principal); N20.0 Calculus of kidney
CPT/HCPCS: 76770

== ENCOUNTER 2020-08-29 17:42 | Emergency (ER) | payer MEDICAID, SELFPAY ==
[2020-08-29 17:48] VITALS: BP 149/80; PULSE 120; RESP 14; TEMP 36.6; O2SAT 95
--- NOTE | 2020-08-29 18:22 | W.ED.GENAD ---
Discharge Plan Disposition Patient Disposition: HOME Condition: Stable Discharge Details Clinical Impression: Laceration of left thumb Primary Care Provider: Rafael Strong ED Provider: Devora Estrada Home Meds and New Rx's Prescriptions: No Action methylphenidate HCl [Ritalin] 10 mg Tablet 10 mg PO DAILY RF: 0 trazodone 100 mg Tablet 100 mg PO HS RF: 0 gabapentin 100 mg Capsule 200 mg PO TID RF: 0 methadone 5 mg/5 mL Solution 95 mg PO DAILY RF: 0 omeprazole 20 mg Capsule,Delayed Release(Dr/Ec) 20 mg PO DAILY RF: 0 Discharge Instructions Instructions: Laceration (ED), Skin Adhesive Care (ED) Additional Instructions: Skin the wound will slough off on their own in 4 to 6 days. Return to the ED or be seen sooner if any signs of infection including increased redness, swelling, drainage or red streaks going up in her extremity. Follow up with primary care provider in 3-5 days. Return to ED sooner if any worsening or concerns. Increase oral fluids. Please take Tylenol or Ibuprofen with food every 4-6 hours as needed for pain and swelling. Leave wound alone for 12 to 24 hours and then you may wash under running soap and water try to keep as dry as possible. Referrals: Rafael Strong [Primary Care Provider] - Discharge Data Discharge Date/Time-TO BE ENTERED AT DEPARTURE: 08/29/20 18:30 Medical Decision Making 30-year-old male presents to the ED with chief complaint of thumb laceration. He has very appreciated partial-thickness laceration noted to the base of the thumb. This occurred approximately 30 minutes prior to arrival. His tetanus shot is up-to-date last known tetanus 2017. He has full range of motion noted to the digit and distal circulation sensation intact. At this time bleeding is controlled, I do not feel this is a suturable laceration at this time. Laceration closed with Dermabond, 2 Steri-Strips and a finger splint applied. Patient discussed home care and strict return instructions, verbalized understanding. HPI General Mode of arrival: ambulatory. Date/Time Provider Initiated Documentation: 08/29/20 17:51. Limitations to Documentation: no limitations. Information obtained by: patient. HPI Narrative: 30-year-old male presents to the ED with chief complaint of thumb laceration. He has very appreciated partial-thickness laceration noted to the base of the thumb. This occurred approximately 30 minutes prior to arrival. His tetanus shot is up-to-date last known tetanus 2017. He has full range of motion noted to the digit and distal circulation sensation intact. At this time bleeding is controlled, I do not feel this is a suturable laceration at this time. Related Data Home Medications Medication Instructions Recorded Confirmed gabapentin 200 mg PO TID 11/11/18 08/29/20 methylphenidate HCl [Ritalin] 10 mg PO DAILY 11/11/18 08/29/20 trazodone 100 mg PO HS 11/11/18 08/29/20 methadone 95 mg PO DAILY 08/30/19 08/29/20 omeprazole 20 mg PO DAILY 08/29/20 08/29/20 Allergies Allergy/AdvReac Type Severity Reaction Status Date / Time No Known Allergies Allergy Unverified 08/29/20 17:52 General Stated Complaint: Laceration SABRA: 3 Review of Systems All systems reviewed & are unremarkable except as noted in HPI and below Integumentary/Breasts Skin/Breast: Reports wounds (Laceration to the base of the left thumb palmar surface) [facility] Medical History (Updated 08/29/20 @ 18:25 by Devora Estrada) Asthma IV drug abuse Narcotic abuse Surgical History No significant past surgical history Social History Smoking/Tobacco Use Status: Current every day Tobacco Type: cigarettes Smoking risk assessment performed?: Yes Alcohol Intake: former Substance use type: does not use and former substance user Details: on methadone Do you feel safe at home: Yes Do you feel safe in your relationship?: Yes Exam Skin Wounds: wounds noted (V shaped) laceration left palmar thumb size (0.5 cm); without any surrounding erythema Extrem Left upper extremity: full ROM, normal capillary refill and hand Details: laceration; no edema Hand/finger images: 1. V-shaped small partial-thickness 0.5 cm laceration noted to the base of the left thumb, bleeding is controlled, distal circulation sensation and movement intact. Course Vital Signs Vital signs: Vital Signs Temperature 36.6 C 08/29/20 17:48 Pulse 120 H 08/29/20 17:48 Respiratory Rate 14 08/29/20 17:48 Blood Pressure 149/80 H 08/29/20 17:48 Pulse Oximetry 95 08/29/20 17:48 Temperature 36.6 C 08/29/20 17:48 Temperature Source Skin 08/29/20 17:48 Pulse 120 H 08/29/20 17:48 Respiratory Rate 14 08/29/20 17:48 Respiratory Effort Non-Labored 08/29/20 17:55 Blood Pressure 149/80 H 08/29/20 17:48 Blood Pressure Position Sitting 08/29/20 17:48 Pulse Oximetry 95 08/29/20 17:48 Oxygen Delivery Method Room Air 08/29/20 17:48 Oxygen Flow Rate 0 08/29/20 17:48 Pain Level 4 08/29/20 17:48
== END 2020-08-29 18:30 | disposition home or self-care (01) ==
PROVIDERS: Emergency Provider Registered Nurse Emergency; PCP Family Medicine
DX: S61.012A Laceration without foreign body of left thumb without damage to nail, initial encounter (principal); W26.8XXA Contact with other sharp object(s), not elsewhere classified, initial encounter
CPT/HCPCS: 12001

== ENCOUNTER 2021-02-04 19:09 | Emergency (ER) | payer MEDICAID, SELFPAY ==
--- NOTE | 2021-02-04 19:14 | W.ED.GENAD ---
Discharge Plan Disposition Patient Disposition: HOME Condition: Improving Discharge Details Clinical Impression: Upper abdominal pain, Vomiting Primary Care Provider: Rafael Strong ED Provider: Liseth Geiger Home Meds and New Rx's Prescriptions: New sucralfate [Carafate] 1 gram tablet 1 gm PO QACHS Qty: 14 RF: 0 omeprazole magnesium [Prilosec OTC] 20 mg tablet,delayed release (DR/EC) 20 mg PO DAILY Qty: 14 RF: 0 Continued methylphenidate HCl [Ritalin] 10 mg Tablet 20 mg PO DAILY RF: 0 gabapentin 100 mg Capsule 600 mg PO TID RF: 0 methadone 5 mg/5 mL Solution 50 mg PO DAILY RF: 0 Discharge Instructions Instructions: Gastritis (ED), Diet for Stomach Ulcers and Gastritis (ED) Additional Instructions: Drink plenty of fluids and get plenty of rest. Your prescriptions have been sent electronically to your pharmacy. Call the pharmacy to make sure your prescriptions are ready before pickup. Take the prescriptions as directed. Call the surgery office tomorrow to schedule follow-up appointment for reevaluation. Return immediately to the emergency department if you develop any worsening or new concerning symptoms. 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 His vitals are within normal limits. He appears nontoxic. He has tenderness to palpation his left upper quadrant and right upper quadrant and epigastrium. Delay in obtaining labs due to difficult IV access. Differential diagnosis includes gastritis, PUD, GERD, pancreatitis, cholelithiasis, cholecystitis, etc. Will place an IV, bolus IV fluids, screening labs, CT chest abdomen pelvis considering chronic productive cough to rule out pneumonia or other acute abdominal process. Will give a GI cocktail, Carafate, Compazine and Pepcid and reassess. Labs and imaging reviewed. White blood cell count 12.55. ALT 84. Lipase within normal limits. CT chest negative. CT abdomen notes right renal calculi but no other acute findings. Patient lost his IV in radiology as the line blew with contrast. Plan to replace his IV to give him IV Compazine and Pepcid and IV fluids at bedside the patient declined. Patient stated he did not want additional attempt at access as we have already tried multiple times and he has a previous history of IV drug abuse and does not want an IV. Patient was given oral Pepcid and Compazine. Patient reassessed and he feels better. Patient states he feels good to go home. Patient placed on surgery follow-up with for reevaluation. Differential diagnosis includes GERD, PUD, alcoholic gastritis. Will start patient on PPI and Carafate Patient requested work note for the next 2 days. Usual and customary return precautions given prior to discharge. Medical Records Medical records reviewed: Yes I reviewed the patient's medical records. Imaging Data Radiologic Study: Radiologist's impression: CTA Chest With Contrast Exam date and time: 02/04/2021 8:40 PM Age: 30 years old Clinical indication: Other: Chronic cough, luq/ruq abd pain, vomiting TECHNIQUE: Imaging protocol: Computed tomographic angiography of the chest with contrast. 3D rendering (Not supervised by radiologist): MIP and/or 3D reconstructed images were created by the technologist. Radiation optimization: All CT scans at this facility use at least one of these dose optimization techniques: automated exposure control; mA and/or kV adjustment per patient size (includes targeted exams where dose is matched to clinical indication); or iterative reconstruction. Contrast material: OMIPAQUE 350; Contrast volume: 100 ml; Contrast route: INTRAVENOUS (IV); Other contrast: chronic cough, luq/ruq abd pain, vomiting; COMPARISON: No relevant prior studies available. FINDINGS: Pulmonary arteries: No pulmonary artery filling defects. Aorta: Unremarkable. No aortic aneurysm. No aortic dissection. Lungs: No parenchymal consolidation. Pleural spaces: Unremarkable. No pneumothorax. No pleural effusion. Heart: Unremarkable. No cardiomegaly. No pericardial effusion. Lymph nodes: No adenopathy. Bones/joints: Unremarkable. No acute fracture. Soft tissues: Minimal, asymmetric gynecomastia, slightly greater on the right. IMPRESSION: No acute findings. CTA Abdomen and Pelvis With Contrast Exam date and time: 02/04/2021 8:40 PM Age: 30 years old Clinical indication: Other: Chronic cough, luq/ruq abd pain, vomiting TECHNIQUE: Imaging protocol: Computed tomographic angiography of the abdomen and pelvis with contrast material. 3D rendering (Not supervised by radiologist): MIP and/or 3D reconstructed images were created by the technologist. Radiation optimization: All CT scans at this facility use at least one of these dose optimization techniques: automated exposure control; mA and/or kV adjustment per patient size (includes targeted exams where dose is matched to clinical indication); or iterative reconstruction. Contrast material: OMNIPAQUE 350; Contrast volume: 100 ml; Contrast route: INTRAVENOUS (IV); Other contrast: chronic cough, luq/ruq abd pain, vomiting; COMPARISON: No relevant prior studies available. FINDINGS: Aorta: No aortic aneurysm. No aortic dissection. Celiac trunk and mesenteric arteries: No occlusion or significant stenosis. Renal arteries: No occlusion or significant stenosis. Right iliac arteries: No occlusion or significant stenosis. Left iliac arteries: No occlusion or significant stenosis. Liver: No mass. Gallbladder and bile ducts: Unremarkable. No calcified stones. No ductal dilation. Pancreas: Pancreas appears normal. No ductal dilatation. Spleen: Spleen top normal in size. Adrenal glands: Normal adrenal glands. Kidneys and ureters: 1 and 4 mm radiopaque calculi right kidney No hydronephrosis. Stomach and bowel: Unremarkable. No obstruction. No mucosal thickening. Appendix: Normal appendix. Intraperitoneal space: No free intraperitoneal gas. No ascites. Lymph nodes: Unremarkable. No enlarged lymph nodes. Urinary bladder: Unremarkable. No mass. Reproductive: Unremarkable as visualized. Bones/joints: Unremarkable. No acute fracture. No dislocation. Soft tissues: Unremarkable. IMPRESSION: 1. Right renal calculi. 2. No aortic aneurysm or dissection. 3. No mesenteric, renal or iliac artery arterial occlusive disease. Lab Data Lab results reviewed: Yes I reviewed the patient's lab results. Labs: Laboratory Tests Range/Units 02/04/21 02/04/21 20:15 20:15 WBC (4.4-10.8) 10^3/uL 12.55 H RBC (4.36-5.78) 10^6/uL 4.75 Hgb (13.5-17.5) g/dL 15.6 Hct (40.0-50.0) % 47.6 MCV (80-95) fL 100.2 H MCH (27.0-33.0) pg 32.8 MCHC (32.0-36.0) % 32.8 RDW (11.8-14.1) % 13.6 Plt Count (130-400) 10^3/uL 194 MPV (8.0-11.0) fL 10.9 Immature Gran % 0.3 Neutrophils % 63.0 Lymphocytes % 24.4 Monocytes % 9.2 Eosinophils % 2.4 Basophils % 0.7 Nucleated RBC % % 0 Absolute Neutrophils (1.2-6.7) 10^3/uL 7.91 H Absolute Lymphocytes (1.2-3.4) 10^3/uL 3.06 Absolute Monocytes (0.1-0.8) 10^3/uL 1.15 H Absolute Eosinophils (0.0-0.7) 10^3/uL 0.30 Absolute Basophils (0.0-0.2) 10^3/uL 0.09 Sodium (136-145) mmol/L 144 Potassium (3.5-5.1) mmol/L 4.3 Chloride (98-107) mmol/L 106 Carbon Dioxide (21.0-32.0) mmol/L 28.9 Anion Gap (3-11) mmol/L 9.1 BUN (7-18) mg/dL 16 Creatinine (0.70-1.30) mg/dL 1.0 Estimated GFR/1.73 m2 (mL/min/1.73m2) >= 60.00 Glucose (74-106) mg/dL 103 Calcium (8.5-10.1) mg/dL 8.9 Total Bilirubin (0.2-1.0) mg/dL 0.2 AST (15-37) U/L 35 ALT (16-63) U/L 84 H Alkaline Phosphatase (46-116) U/L 99 Total Protein (6.4-8.2) g/dL 7.2 Albumin (3.4-5.0) g/dL 3.6 Lipase (73-393) U/L 104 HPI General Mode of arrival: ambulatory. Date/Time Provider Initiated Documentation: 02/04/21 19:13. Limitations to Documentation: no limitations. Information obtained by: patient. HPI Narrative: Patient is a 30-year-old male with a former history of IV drug abuse in remission for the past 2 years while on methadone presents for left upper quadrant starting 1 week ago which then resolved and is now mainly present in the right upper quadrant for the past few days. Patient states the pain is intermittent and sharp and currently 6/10. He states he still occasionally has twinges of sharp pain in the left upper quadrant but states it is mainly down the right upper quadrant. He states he has been drinking 1 pint of liquor and 4 beers daily for the past 2 months. He states his last drink was 4 days ago. He states he feels like he did go through a short withdrawal. But denies any withdrawal symptoms at this time. He states he has vomited a few times today which is mainly bile and clear. He states he has been having normal bowel movements. He states he has a chronic Related Data Home Medications Medication Instructions Recorded Confirmed gabapentin 600 mg PO TID 11/11/18 02/04/21 methylphenidate HCl [Ritalin] 20 mg PO DAILY 11/11/18 02/04/21 methadone 50 mg PO DAILY 08/30/19 02/04/21 omeprazole magnesium [Prilosec OTC] 20 mg PO DAILY #14 tab 02/04/21 sucralfate [Carafate] 1 gm PO QACHS #14 tab 02/04/21 Previous Rx's Medication Instructions Recorded omeprazole magnesium [Prilosec OTC] 20 mg PO DAILY #14 tab 02/04/21 sucralfate [Carafate] 1 gm PO QACHS #14 tab 02/04/21 Allergies Allergy/AdvReac Type Severity Reaction Status Date / Time No Known Allergies Allergy Unverified 02/04/21 19:26 General SABRA: 3 Review of Systems All systems reviewed & are unremarkable except as noted in HPI and below Constitutional Constitutional: Reports as per HPI, Denies chills and Denies fever(s) Eyes Eyes: Denies blurry vision ENT Ears, Nose, Mouth, and Throat: Denies dizziness, Denies sore throat and Denies throat swelling Cardiovascular Cardiovascular: Denies chest pain and Denies dyspnea Respiratory Respiratory: Denies cough and Denies dyspnea Gastrointestinal Gastrointestinal: Reports abdominal pain, Denies diarrhea and Reports vomiting Genitourinary Genitourinary: Denies hematuria and Denies dysuria Musculoskeletal Musculoskeletal: Denies back pain and Denies numbness Integumentary/Breasts Skin/Breast: Denies lesions and Denies rash Neurologic Neurologic: Denies dizziness, Denies localized weakness and Denies numbness Allergic/Immunologic Allergic/Immunologic: Denies throat swelling [facility] Medical History (Updated 02/04/21 @ 21:35 by Liseth Geiger DO) Asthma 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 Goes to the Methadone clinic. Do you feel safe at home: Yes Do you feel safe in your relationship?: Yes Exam Const General: cooperative and no acute distress HENMT Head: normal to inspection Face and sinus: normal facial exam Eyes General: appearance normal, both eyes and all related structures EOM: EOM intact bilaterally Neck Neck: normal visual inspection and No submandibular swelling Chest Chest: normal inspection of the chest and no tenderness Resp Effort & Inspection: normal respiratory effort and able to speak in complete sentences Auscultation: clear to auscultation bilaterally Cardio Rate: regular rate Rhythm: regular rhythm GI Inspection: normal to inspection Palpation: soft, not firm, not rigid and tender in the LUQ and in the RUQ Auscultation: hypoactive bowel sounds Skin General skin exam: no rashes or lesions noted Neuro General: patient alert, patient awake and patient oriented x3 Cognition: normal cognition Speech: speech normal Motor: muscle tone normal throughout Sensory Exam: no sensory deficits noted Extrem General: normal to inspection, full ROM, capillary refill normal, no calf tenderness bilaterally and no edema Psych Appearance: grossly normal Mental Status: mental status grossly normal Speech and Movement: speech and movement normal Affect: normal affect
[2021-02-04 19:15] VITALS: BP 119/77; PULSE 73; RESP 18; TEMP 36.4; O2SAT 95
--- NOTE | 2021-02-04 20:00 | DI.CT_ITS ---
EXAM: CT CHEST PE ABD PELVIS W CLINICAL HISTORY: chronic cough, LUQ/RUQ abd pain, vomiting. TECHNIQUE: Imaging Protocol: Axial CT angiography was performed with multi-slice acquisition and m ulti-planar and/or 3D reconstructions. CONTRAST MATERIAL: Intravenous: Omnipaque 350 Contrast volume:100 ml Oral: None COMPARISON: CT CT ABDOMEN PELVIS WO/W from 11/03/2019 FINDINGS: CHEST: PULMONARY ARTERIES: There are no intra-arterial filling defects to suggest the presence of acute pulm onary emboli. LUNGS: There is no evidence of pulmonary infarction.In the lateral aspect of the right lower lobe the re is a noncalcified 4 millimeter nodule (series 5/image 45). No other focal lung findings and there are no pleural effusions. MEDIASTINUM: There is no hilar nor mediastinal adenopathy. Visualized thyroid unremarkable. CARDIAC: Heart size is normal. There is no pericardial effusion. There is no significant shift of t he interventricular septum.Caliber of the thoracic aorta is within normal limits. OSSEOUS: No significant osseous lesions.. ABDOMEN: There is no ascites. LIVER: There are no focal hepatic lesions nor dilatation of intrahepatic ducts. GALLBLADDER/BILIARY: No obvious gallbladder pathology. CBD is not dilated. PANCREAS: No evidence of pancreatic mass nor dilatation of the pancreatic duct. SPLEEN: Spleen is not enlarged. There are no intrasplenic lesions. Splenic and portal veins are fields nt. ADRENALS: There are no significant adrenal masses. KIDNEYS:No cysts evident. There is a nonobstructive 3 millimeter calculus in the right kidney. Also another 1 millimeter nonobstructive calculus. There are no calculi in the opposite-left kidney. No solid renal masses evident. No hydronephrosis. No hydroureter. No calculi seen in the nondistended urinary bladder.. ABDOMINAL AORTA: Abdominal aorta is not enlarged. No atherosclerotic disease. Aortoiliac segments a re nicely patent. Common femoral arteries are nicely patent. LYMPH NODES: There is no retroperitoneal or para-aortic adenopathy. ABDOMINAL WALL/GI: No evidence of significant anterior abdominal wall hernia. No bowel obstruction. PELVIS: LYMPH NODES: There is no intrapelvic nor inguinal adenopathy. GI: No evidence of appendicitis.No evidence of sigmoid diverticulitis. URINARY BLADDER: No calculi nor masses evident REPRODUCTIVE: Age-appropriate OSSEOUS: No significant osseous lesions. IMPRESSION: 1. No evidence of acute pulmonary emboli nor pulmonary infarction. There are no pleural effusions. 2. Small 4 millimeter nodule in the lateral aspect of the right lung which is unchanged from uppermos t image of abdomen abdominal CT scan performed October 2019 and therefore most probably benign. Marquise sandoval, recommend follow-up CT scan in 1 year. 3. There are few small nonobstructive calculi noted in the right kidney. No hydronephrosis. No calc geno seen in the opposite-left kidney. No calculi seen in the urinary bladder. 4. 5. RADIATION DOSE DELIVERED: 1,047.88mGy.cm Total DLP DATA REPOSITORY: All CT scans at this facility are submitted to the National Radiology Data Registry (NRDR) Dose Index Registry (DIR) with the [employer] (A[employer]). RADIATION OPTIMIZATION: All CT scans at this facility use at least one of these dose optimization te chniques: automated exposure control; mA and/or kV adjustment per patient size (includes targeted exa ms where dose is matched to clinical indication); or iterative reconstruction.
[2021-02-04] MEDS: Sucralfate 1 GM TAB PO (20:25)
[2021-02-04 20:27] LABS: Abs Immature Grans 0.04 10^3/uL (0.0-0.06); Absolute Basophil Count 0.09 10^3/uL (0.0-0.2); Absolute Lymphocyte Count 3.06 10^3/uL (1.2-3.4); Basophils % 0.7; Eosinophils % 2.4; HCT 47.6 % (40.0-50.0); HGB 15.6 g/dL (13.5-17.5); Immature Grans % 0.3; Lymphocytes % 24.4; MCH 32.8 pg (27.0-33.0); MCHC 32.8 % (32.0-36.0); MCV 100.2 fL (80-95); MPV 10.9 fL (8.0-11.0); Monocytes % 9.2; Nucleated RBC 0 %; Platelet Count 194 10^3/uL (130-400); RBC 4.75 10^6/uL (4.36-5.78); RDW 13.6 % (11.8-14.1); RDW-SD 50.5 fL; WBC 12.55 10^3/uL (4.4-10.8)
[2021-02-04 20:28] LABS: Absolute Monocyte Count 1.15 10^3/uL (0.1-0.8); Absolute Neutrophil Count 7.91 10^3/uL (1.2-6.7)
[2021-02-04] MEDS: Omnipaque 350 MG/ML 100 ML BTL IV (20:42)
[2021-02-04 20:44] LABS: ALT 84 U/L (16-63); AST 35 U/L (15-37); Albumin 3.6 g/dL (3.4-5.0); Alkaline Phosphatase 99 U/L (46-116); Anion Gap 9.1 mmol/L (3-11); BUN 16 mg/dL (7-18); Bilirubin, Total 0.2 mg/dL (0.2-1.0); CO2 28.9 mmol/L (21.0-32.0); Calcium 8.9 mg/dL (8.5-10.1); Chloride 106 mmol/L (98-107); Glucose 103 mg/dL (74-106); Lipase 104 U/L (73-393); Potassium 4.3 mmol/L (3.5-5.1); Sodium 144 mmol/L (136-145); Total Protein 7.2 g/dL (6.4-8.2)
[2021-02-04] MEDS: Normal Saline - Diluent 50 ML VIAL IV (20:49)
--- NOTE | 2021-02-04 21:00 | NUR.NOTE ---
Nursing Note: Unable to get IV access. Will have Dr. Ryan attempt with US machine. Patient has now decided he does not want to be stuck any more. Patient in no apparent distress or pain, sitting quietly on stretcher texting with his girlfriend. Patient agrees to try PO meds.
[2021-02-04] MEDS: Prochlorperazine 10 MG TAB PO (21:24)
[2021-02-04] MEDS: Famotidine 20 MG TAB PO (21:24)
--- NOTE | 2021-02-04 21:26 | DI.VRAD_ITS ---
PROCEDURE INFORMATION: Exam: CTA Chest With Contrast Exam date and time: 02/04/2021 8:40 PM Age: 30 years old Clinical indication: Other: Chronic cough, luq/ruq abd pain, vomiting TECHNIQUE: Imaging protocol: Computed tomographic angiography of the chest with contrast. 3D rendering (Not supervised by radiologist): MIP and/or 3D reconstructed images were created by the technologist. Radiation optimization: All CT scans at this facility use at least one of these dose optimization techniques: automated exposure control; mA and/or kV adjustment per patient size (includes targeted exams where dose is matched to clinical indication); or iterative reconstruction. Contrast material: OMIPAQUE 350; Contrast volume: 100 ml; Contrast route: INTRAVENOUS (IV); Other contrast: chronic cough, luq/ruq abd pain, vomiting; COMPARISON: No relevant prior studies available. FINDINGS: Pulmonary arteries: No pulmonary artery filling defects. Aorta: Unremarkable. No aortic aneurysm. No aortic dissection. Lungs: No parenchymal consolidation. Pleural spaces: Unremarkable. No pneumothorax. No pleural effusion. Heart: Unremarkable. No cardiomegaly. No pericardial effusion. Lymph nodes: No adenopathy. Bones/joints: Unremarkable. No acute fracture. Soft tissues: Minimal, asymmetric gynecomastia, slightly greater on the right. IMPRESSION: No acute findings. PROCEDURE INFORMATION: Exam: CTA Abdomen and Pelvis With Contrast Exam date and time: 02/04/2021 8:40 PM Age: 30 years old Clinical indication: Other: Chronic cough, luq/ruq abd pain, vomiting TECHNIQUE: Imaging protocol: Computed tomographic angiography of the abdomen and pelvis with contrast material. 3D rendering (Not supervised by radiologist): MIP and/or 3D reconstructed images were created by the technologist. Radiation optimization: All CT scans at this facility use at least one of these dose optimization techniques: automated exposure control; mA and/or kV adjustment per patient size (includes targeted exams where dose is matched to clinical indication); or iterative reconstruction. Contrast material: OMNIPAQUE 350; Contrast volume: 100 ml; Contrast route: INTRAVENOUS (IV); Other contrast: chronic cough, luq/ruq abd pain, vomiting; COMPARISON: No relevant prior studies available. FINDINGS: Aorta: No aortic aneurysm. No aortic dissection. Celiac trunk and mesenteric arteries: No occlusion or significant stenosis. Renal arteries: No occlusion or significant stenosis. Right iliac arteries: No occlusion or significant stenosis. Left iliac arteries: No occlusion or significant stenosis. Liver: No mass. Gallbladder and bile ducts: Unremarkable. No calcified stones. No ductal dilation. Pancreas: Pancreas appears normal. No ductal dilatation. Spleen: Spleen top normal in size. Adrenal glands: Normal adrenal glands. Kidneys and ureters: 1 and 4 mm radiopaque calculi right kidney No hydronephrosis. Stomach and bowel: Unremarkable. No obstruction. No mucosal thickening. Appendix: Normal appendix. Intraperitoneal space: No free intraperitoneal gas. No ascites. Lymph nodes: Unremarkable. No enlarged lymph nodes. Urinary bladder: Unremarkable. No mass. Reproductive: Unremarkable as visualized. Bones/joints: Unremarkable. No acute fracture. No dislocation. Soft tissues: Unremarkable. IMPRESSION: 1. Right renal calculi. 2. No aortic aneurysm or dissection. 3. No mesenteric, renal or iliac artery arterial occlusive disease. Dictated and Authenticated by: Shaun Davis MD. Ordering:SHUKRI Childers MD
--- NOTE | 2021-02-04 21:47 | NUR.NOTE ---
Nursing Note: referal sent to surgery for gastritis and vomittinf 02/04/21
[2021-02-04 22:00] VITALS: BP 116/79; PULSE 69; RESP 16; TEMP 36.4; O2SAT 95
== END 2021-02-04 22:00 | disposition home or self-care (01) ==
PROVIDERS: Emergency Provider Physician Assistant; PCP Family Medicine
DX: R10.12 Left upper quadrant pain; R11.2 Nausea with vomiting, unspecified; F10.10 Alcohol abuse, uncomplicated
CPT/HCPCS: 36415; 71275; 74177; 80053; 83690; 96361; 96374; 99285; 85025; J0780; J3490

== ENCOUNTER 2021-02-12 09:26 | Emergency (ER) | payer MEDICAID, SELFPAY ==
[2021-02-12 09:29] VITALS: BP 138/75; PULSE 102; RESP 16; TEMP 36.8; O2SAT 96
--- NOTE | 2021-02-12 09:50 | ED.GENADUL_ITS ---
Discharge Plan Disposition Patient Disposition: HOME Condition: Stable Discharge Details Clinical Impression: Dental infection Primary Care Provider: Rafael Strong ED Provider: Angeli Gilman Home Meds and New Rx's Prescriptions: New penicillin V potassium 500 mg tablet 500 mg PO QID 7 Days Qty: 28 RF: 0 Continued methylphenidate HCl [Ritalin] 10 mg Tablet 20 mg PO DAILY RF: 0 gabapentin 100 mg Capsule 600 mg PO TID RF: 0 methadone 5 mg/5 mL Solution 50 mg PO DAILY RF: 0 sucralfate [Carafate] 1 gram tablet 1 gm PO QACHS Qty: 14 RF: 0 omeprazole magnesium [Prilosec OTC] 20 mg tablet,delayed release (DR/EC) 20 mg PO DAILY Qty: 14 RF: 0 Discharge Instructions Instructions: Dental Abscess (ED) Additional Instructions: Encourage water intake. Encourage dental care, brush 2x/day. Tylenol and/or Ibuprofen as needed for discomfort. Antibiotics have been sent to your pharmacy. Please take entire course. Attached is list of dentists, please call today to schedule appointment as soon as possible. If you develop fevers/chills, increased pain, swelling or other new/worsening symptoms please seek care urgently once again. Stand Alone Forms: Work Release Referrals: Rafael Strong [Primary Care Provider] - Medical Decision Making Patient is a pleasant 30 year old male presenting with c/c of left lower dental pain x 4 days. He reports pain progressively worsening. No fevers/chills. No swelling. No difficulty swallowing. He reports poor dentition, no dental care. Using tylenol/ibuprofen for pain which is helping. On exam, patient is non-toxic. Poor dentition. Pain alonw buccal side of #17 tooth, this tooth is fractured that is dark and short. No evidence of abscess. No lymphadenopathy. No swelling under tongue, uvula is midline, no posterior swelling. Discussed treatment plan for dental infection. Will start on abx. Encouraged dental care. He will f/u with dentist, list of local dentists was given to the patient. Return precautions discussed. All questions and concerns were addressed, he is in agreement with this plan. HPI General Mode of arrival: ambulatory . Date/Time Provider Initiated Documentation: 02/12/21 09:50 . Limitations to Documentation: no limitations . Information obtained by: patient and RN notes reviewed . History of Present Illness 30 year old M presents to the emergency department with the chief complaint of left lower dental pain, described as severe, with intensity rated at 8. Quality is described as aching, and is localized to the mouth. Patient reports no radiation. Patient started experiencing this day(s) (4) and it has been constant. No relieving factors improve symptom(s), No e xacerbating factors reported . Patient notes no other symptoms.. Patient did receive the following treatments prior to arrival, NSAID Related Data Home Medications Medication Instructions Recorded Confirmed gabapentin 600 mg PO TID 11/11/18 02/12/21 methylphenidate HCl [Ritalin] 20 mg PO DAILY 11/11/18 02/12/21 methadone 50 mg PO DAILY 08/30/19 02/12/21 omeprazole magnesium [Prilosec OTC] 20 mg PO DAILY #14 tab 02/04/21 sucralfate [Carafate] 1 gm PO QACHS #14 tab 02/04/21 penicillin V potassium 500 mg PO QID 7 Days #28 tab 02/12/21 Previous Rx's Medication Instructions Recorded omeprazole magnesium [Prilosec OTC] 20 mg PO DAILY #14 tab 02/04/21 sucralfate [Carafate] 1 gm PO QACHS #14 tab 02/04/21 penicillin V potassium 500 mg PO QID 7 Days #28 tab 02/12/21 Allergies Allergy/AdvReac Type Severity Reaction Status Date / Time No Known Allergies Allergy Unverified 02/04/21 19:26 General Stated Complaint: DentalOral SABRA: 4 Review of Systems Constitutional Constitutional: Reports as per HPI, Denies chills, Denies fatigue, Denies fever(s), Denies headache(s) and Denies poor appetite Eyes Eyes: Denies change in vision and Denies irritation ENT Ears, Nose, Mouth, and Throat: Reports as per HPI, Reports dental pain, Denies dysphagia, Denies otalgia, Denies headache(s), Denies hoarseness, Denies nasal congestion, Denies odynophagia and Denies sore throat Cardiovascular Cardiovascular: Reports as per HPI and Denies chest pain Respiratory Respiratory: Reports as per HPI and Denies cough Gastrointestinal Gastrointestinal: Reports as per HPI, Denies dysphagia, Denies nausea, Denies odynophagia and Denies vomiting Integumentary/Breasts Skin/Breast: Reports as per HPI, Denies erythema, Denies rash and Denies skin pain Neurologic Neurologic: Reports as per HPI and Denies headache(s) Endocrine Endocrine: Denies fatigue [facility] Medical History (Updated 02/12/21 @ 10:04 by TIARA Kumar) Asthma 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 Goes to the Methadone clinic. Do you feel safe at home: Yes Do you feel safe in your relationship?: Yes Exam Const General: cooperative, healthy appearing, comfortable, no acute distress, well developed and well groomed Nutritional Appearance: average body habitus and well nourished Orientation: alert and awake [facility] Head: normal to inspection, normocephalic and atraumatic Ears: hearing grossly normal bilaterally, external ears normal and TM's normal bilaterally General nose exam: external nose normal and nares normal Face and sinus: normal facial exam, sinuses nontender and face symmetric Mouth: oral mucosae normal, lip normal, tongue normal, oropharynx normal, No mouth trauma, no muffled voice, no trismus and No restricted motion Teeth and gingiva: caries, poor dentition and other (Tenderness along left lower dentition. #17 tooth, buccal side) Throat: posterior oropharynx normal, tonsils normal and uvula midline Eyes General: appearance normal, both eyes and all related structures Neck Neck: normal visual inspection, full ROM, no lymphadenopathy, supple and no anterior neck swelling Resp Effort & Inspection: normal respiratory effort, able to speak in complete sentences and no respiratory distress Auscultation: clear to auscultation bilaterally, no rales, no rhonchi and no wheezes Cardio Rate: regular rate Rhythm: regular rhythm Heart Sounds: S1 normal and S2 normal Skin General skin exam: no rashes or lesions noted Trauma: no lacerations or abrasions Neuro General: patient alert and patient awake Cognition: normal cognition Speech: speech normal Gait: normal gait Psych Appearance: grossly normal and well kempt Mental Status: mental status grossly normal Speech and Movement: speech and movement normal Course Vital Signs Vital signs: Vital Signs Temperature 36.8 C 02/12/21 09:29 Pulse 102 H 02/12/21 09:29 Respiratory Rate 16 02/12/21 09:29 Blood Pressure 138/75 02/12/21 09:29 Pulse Oximetry 96 02/12/21 09:29 Temperature 36.8 C 02/12/21 09:29 Temperature Source Skin 02/12/21 09:29 Pulse 102 H 02/12/21 09:29 Respiratory Rate 16 02/12/21 09:29 Respiratory Effort 02/12/21 09:34 Blood Pressure 138/75 02/12/21 09:29 Blood Pressure Position Sitting 02/12/21 09:29 Pulse Oximetry 96 02/12/21 09:29 Oxygen Delivery Method Room Air 02/12/21 09:29 Oxygen Flow Rate 0 02/12/21 09:29 Pain Level 8 02/12/21 09:29
== END 2021-02-12 10:12 | disposition home or self-care (01) ==
PROVIDERS: Emergency Provider Physician Assistant; PCP Family Medicine
DX: K04.7 Periapical abscess without sinus (principal)
CPT/HCPCS: 99283

== ENCOUNTER 2021-12-16 17:02 | Outpatient (REF) | payer MEDICAID, SELFPAY ==
[2021-12-16 17:47] LABS: Abs Immature Grans 0.02 10^3/uL (0.0-0.06); Absolute Basophil Count 0.08 10^3/uL (0.0-0.2); Absolute Eosinophil Count 0.23 10^3/uL (0.0-0.7); Absolute Lymphocyte Count 2.86 10^3/uL (1.2-3.4); Absolute Monocyte Count 0.76 10^3/uL (0.1-0.8); Absolute Neutrophil Count 4.95 10^3/uL (1.2-6.7); Basophils % 0.9; Eosinophils % 2.6; HGB 14.2 g/dL (13.5-17.5); Immature Grans % 0.2; Lymphocytes % 32.1; MCH 31.2 pg (27.0-33.0); MCHC 32.3 % (32.0-36.0); MCV 96.7 fL (80-95); MPV 10.9 fL (8.0-11.0); Monocytes % 8.5; Neutrophils % 55.7; Nucleated RBC 0 %; Platelet Count 252 10^3/uL (130-400); RBC 4.55 10^6/uL (4.36-5.78); RDW-SD 46.4 fL
[2021-12-16 17:58] LABS: ALT 74 U/L (16-63); AST 27 U/L (15-37); Albumin 3.6 g/dL (3.4-5.0); Alkaline Phosphatase 113 U/L (46-116); Anion Gap 8.1 mmol/L (3-11); BUN 12 mg/dL (7-18); Bilirubin, Total 0.3 mg/dL (0.2-1.0); CO2 29.9 mmol/L (21.0-32.0); CREATININE 0.9 mg/dL (0.70-1.30); Calcium 9.1 mg/dL (8.5-10.1); Chloride 103 mmol/L (98-107); Glucose 101 mg/dL (74-106); Potassium 4.4 mmol/L (3.5-5.1); Sodium 141 mmol/L (136-145)
[2021-12-16 18:07] LABS: GGT 122 U/L (15-85)
[2021-12-18 10:33] LABS: HIV-1/2 Ag & Ab Screen Negative (Negative)
[2021-12-18 13:07] LABS: HCV RNA Qualitative Detected (Undetected)
--- NOTE | 2022-01-14 10:56 | W.CCNOTE ---
Comprehensive Care Clinic Note Note: [facility] [address] [place]? [id number] Initial [facility] Visit Information New or Remote Diagnosis of HCV (1-2 hours) Name:? Erwin Church? Date of :? 1990? Primary Care Provider: Rafael Strong Date of Service: 01/14/2022 SUBJECTIVE CC: ?I was told I had Hep C 6 years ago when I was at [facility] for drug rehab.? HPI: Erwin began IV drug use when he was 20 y/o ? about 10 years ago ? and so was infected between 6 and 10 years ago. He had been in a methadone MAT program for over 2 years and has not used illicit opiates since starting. He had blood testing done through this office at the end of November this year which showed a HCV viral load of 464,000 / dL. He is here today to begin the conversation about treatment and for evaluation of other risks and overall health status. ROS Constitutional: Fatigued all the time, sleep is disturbed and this is not new but rather has a pattern of up and down and never really feels rested. This pattern has been present ever since he became addicted to opiates. He also drinks tremendous amounts of caffeine in the form a soda a day. He sometimes experiences ?hot flashes but never has a fever. Some night sweats, usually not drenching. Skin: Denies rashes Head: Minimal head trauma Hx, C/O headaches a couple times a week ? pressure behind his eyes w no visual changes, photophobia, N/V Eyes: Denies symptoms, No corrective lenses Ear/Nose/Throat: No ongoing sore throat, nasal congestion. Hearing is fine. Mouth/Teeth: Very poor dental health. Says he has an appointment next month to see an oral surgeon at [facility] for full mouth extractions. Neck: No swelling or pain CV: Says he has palpitations when he gets anxious. Had what sounds like a panic attack when incarcerated 2 years ago and an ER w/u was negative for cardiac arrhythmia/malady Respiratory: Breathless with exertion. Has a mild smokers cough in the AM which is non-productive. Denies Hemoptysis GI: Has frequent, almost daily, nausea, rare vomiting but last year had a few bouts of vomiting ?blood? described as bright red, has frequent diarrhea, no blood in stool noted : ?I think I have Chlamydia? describing a intermittent urethral D/C with some stinging which reminds him of when he had Chlamydia before it was treated. Musculoskeletal: Has some generalized muscle aching but denies joint stiffness, swelling or redness. Endocrine: Denies polyuria, polydipsia, has some heat and cold intolerance Lymphatic: Had an enlarged right upper anterior C chain node a few weeks ago and had antibiotics for dental infection which resolved it. No other enlarged nodes noted. Hematologic: Has some ease of bruising, No unusual bleeding ? Ie. Epistaxis, hematuria, etc. Neuro: Has some tics which he and his sig other describe as ?twitches?. These involuntary movements occur day and night whether asleep or awake. Immunologic: Denies known immune system dysfunction Psychiatric: Anxiety and prone to panic ? PCP does have him RXd, He denies HI/SI. NO H/O hospitalization other than drug rehab. Allergies/Sensitivities: NKDA Current Medications: Gabapentin 600mg tid prn, Seroquel 25 mg q HS, Ritalin 20 mg bid, Methadone 110 mg po daily. He also sayd ?he takes large amount of Tylenol up to 2000mg po at a time when he has a headache and will do this a couple times a day. Past medications Ineffective: None Known Past Medical History: Renal Calculi ? last bout 2 years ago while incarcerated. No Lithotripsy Past Surgical History: None Past Psychiatric History: Severe ADHD, generalized Anxiety w Panic? no hospitalizations - RXd Social History: Lives with his sig other and cares for his 10 y/o son and her 11 y/o and 10 y/o sons. Place of : [place], [place] Gender: Male at and identifies as Male Racial Distribution: C Primary Language: Tunisian Secondary Language(s): None Current County, State of Residence: [place] Marital Status: Single, in relationship w sig other, [facility] Family Size: 5 Pets: 1 cat, 1 rabbit, 2 guinea pigs Housing: satble Incarceration History: 2 nursing home stretches, a few short term, will max out in 12 months History: None Highest Grade Completed: 9th grade ? Able to read? 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 Occupational Exposures: None Health Insurance: Medicaid ? Other payment source: None ? Coverage Issues: None Substance Abuse History: ? Tobacco: Y: Smoker ? Type/Amount: Cigarettes ? 2 ppd, smoking since age 16 ? ETOH: Was heavy ? 6 pack of beer a night until a few months ago, now has 1 or 2 a night ? Illicit Drug Use: + H/O IV opiate use, MAT x 2 years w Methadone ? no illicit opiate use since that time ? Rx Drug Dependence: No ? takes his Ritalin as prescribed. ?I would be able to function if I didn?t take it.? IVDU Hx: x 8-9 years, last 2 years ago. Overdose HX: Never Treatment HX: Inpatient rehab x 2 ? 6 years ago and 2 years ago, MAT w Methadone x 2 years and compliant with the program. Other Psychosocial Considerations: His sig other is his transportation and so he needs to coordinate medical appointments with her work schedule and the schedule of their children Family History ? Mother: His Mother is in a MAT program w Suboxone although it sounds like her opiate use was sporadic and not a daily habit for over a year. ? Father: No addiction ? some ETOH ? Siblings: No addiction ? Children: Healthy ? Grand Parents: Some medical problems, some ETOH ? Extended: Non sig Immunization History ? Tetanus/TDAP: 11/11/2018 ? Hepatitis A: ?I may have had this in [facility]? ? Imm registry has administered on 09/29/2019 ? Hepatitis B: ?I may have had this in [facility]? ? NO record but may have had as a new born due to age ? Flu Vaccine: No ? Pneumovax 23: No ? Prevnar 13: No record ? Shingrix: NA ? Menactra: NA ? Other: Covid vaccine x1 ? 05/16/2021 Health Maintenance: None Known Lipids/Glucose: No H/O Lipids measurement/ Recent Glucose normal ID Screenings: Recent HIV ? AB negative PPD/Quantiferron: Negative 2 years ago in [facility] OBJECTIVE Height: 5?9? Weight: 154# Temp: 98.2 Pulse: 96 reg Respirations: 16 Blood Pressure: 134/76 General: AINAD, Gait strong and steady, Thin but WDWNL Skin: pale, no rash, Tattoos ? most professionally done, some not Head: NCAT Eyes: PERRL ? 3mm w symmetry, Anicteric Ears/Nose: clear Mouth/Teeth: very poor repair of his teeth, some broken to the root, gingiva pale Pharynx: No edema, uvula midline Neck: Supple, non-tender CV/Pulses: RRR, No MCRG, Pulses 2/4 x 4 extremities Chest Lungs: Clear in all lobes Abdomen: Soft, ND, NT, No OGM, Liver palpated out to 4 cm and does not cross the midline, soft, smooth Extremities: No edema or deformity Musculoskeletal: FROM of all joint w/o evidence of effusion, no erythema Neuro: No tremor, no tics noticed : No penial D/C noted Pelvic: NA Rectal: NE Lymphatic: No enlarged nodes in neck, axillae, groin Psychiatric: - appearance: well groomed, stated age - eye contact: good, - attitude: cooperative, - speech: clear/coherent, - affect: appropriate - mood: mildly anxious - memory: short-term intact, nursing home intact - self-perception: wnl - motor activity: a little restless - orientation: intact - attention: intact - thought content: wnl - perceptions: wnl - judgement: intact - insight: good ASSESSMENT/PLAN 1.? Chronic Active HCV Infection with a recent HCV Viral Load of 464,000 dL. Needs genotype testing and will make an appointment for blood draw at the [facility] within the next week or so. Will co-ordinate with his sig other?s schedule so she can also have HCV Ab testing along with a HIV test. He will no doubt need to have a Fibro-scan done to evaluate the level of scaring on the liver due to the length of time he has been infected. I will contact him with the results, set him up for vaccine administration and needed and arrange for further testing to prepare him for formulation of a treatment plan. Encouraged his to stop ETOH and the Tylenol he is taking in large doses. 2.? ETOH ? encouraged him to reduce to none or at least keep it to a minimum and not daily. 3.? SOUD ? Congratulated on his recovery and to continue with the MAT program as he is engaged. Counseling monthly and prn. 4.? Severe ADHD and generalized Anxiety Disorder ? PCP F/U and RXs as prescribed. Extra counseling is needed. 5.? Severe Dental Decay ? keep appointment for the extractions with the oral surgeon at [facility]. 6.? Poor diet and hydration on a daily basis ? discussed basic nutritional needs and encouraged him to switch out some of the soda to H2O. Will check in with him of the progress with this life style change. His sig other commits to helping his with this. MD visit scheduled: Will set him up with ID if needed after all the studies are completed. Will consult with ID first about formulating a treatment plan. Lab work ordered (if not done recently) - repeat Serum HCV Antibody (Ab) w RNC PCR QN DONE - HCV resistance testing if no treatment na?ve NA - CBCD DONE - Comprehensive Metabolic Profile DONE - LDH/GGT DONE - Hepatitis Screening HAV tAb, HBV Ag/sAb Ordered - Syphilis Screening/RPR Ordered - GC, Chlamydia screen (first AM void) Ordered - Quantiferron UTD Provider of Care:? Yamilka Oconnell, MSN, HANDICAPPED TEACHER
== END 2021-12-16 17:03 | disposition home or self-care (01) ==
LOC: LBN 17:02
PROVIDERS: PCP Family Medicine; Visit Provider Nurse Practitioner Family
DX: B18.2 Chronic viral hepatitis C (principal); F11.20 Opioid dependence, uncomplicated; Z79.899 Other long term (current) drug therapy
CPT/HCPCS: 80053; 87389; 87522; 82977; 85025

== ENCOUNTER 2022-01-14 10:32 | Outpatient (CLI) | payer MEDICAID, SELFPAY | END 2022-01-14 10:33 | disposition home or self-care (01) | LOC: CCC 10:33 | PROVIDERS: PCP Family Medicine; Visit Provider Nurse Practitioner Family | DX: B18.2 Chronic viral hepatitis C (principal); F11.20 Opioid dependence, uncomplicated; Z79.899 Other long term (current) drug therapy | CPT/HCPCS: 99204 ==

== ENCOUNTER 2023-10-17 12:03 | Emergency (ER) | payer MEDICAID, SELFPAY ==
[2023-10-17 12:16] VITALS: BP 103/62; PULSE 115; RESP 16; TEMP 36.7; O2SAT 97
--- NOTE | 2023-10-17 13:33 | ED.GENADUL_ITS ---
Discharge Plan Disposition Patient Disposition: Home Discharge Details Clinical Impression: Cellulitis Primary Care Provider: Rafael Strong ED Provider: Charleen Torres Home Meds and New Rx's Prescriptions: New doxycycline hyclate 100 mg capsule 100 mg PO BID Qty: 20 0RF Continued methylphenidate HCl [Ritalin] 10 mg Tablet 20 mg PO DAILY gabapentin 100 mg Capsule 600 mg PO TID methadone 5 mg/5 mL Solution 50 mg PO DAILY sucralfate [Carafate] 1 gram tablet 1 gm PO QACHS Qty: 14 0RF omeprazole magnesium [Prilosec OTC] 20 mg tablet,delayed release (DR/EC) 20 mg PO DAILY Qty: 14 0RF Discharge Instructions Instructions: Cellulitis (ED) Additional Instructions: Warm compresses Take the antibiotic as prescribed Yogurt daily while on antibiotic Wear splint and try to elevate your arm is much as possible, the more you decrease the use of your arm faster will heal, it will likely be 48 hours before you notice a difference in the redness and swelling Should you develop fever, spreading redness, worsening pain, please return for reassessment Please try not to inject, however if you do please avoid the right arm altogether Referrals: Rafael Strong [Primary Care Provider] - Medical Decision Making This 33-year-old male presents with report of cellulitis to his right forearm. Denies chest pain or shortness of breath Alert and oriented, repeat pulse 100, patient states he typically has tachycardia Received his dose of methadone today, has swelling to his hand and pain with movement of his wrist, denies injection into the wrist joint Discussed having cane and recovery assessed patient, he has declined, Talked about ordering blood work and imaging, patient has declined, prefers to start with antibiotics and be reassessed in [address] in splint and initiate doxycycline twice a day for 10 days Return precautions reviewed and patient expressed understanding HPI General Date/Time Provider Initiated Documentation: 10/17/23 13:12 . HPI Narrative: This 33-year-old male presents with report of recent injection with fentanyl. On methadone, used a week ago and now having redness and worsening pain to his forearm. Denies chance of retained foreign body. Denies fever or chills. Denies any chest pain or shortness of breath. Related Data Home Medications Medication Instructions Recorded Confirmed gabapentin 100 mg capsule 600 mg PO TID 11/11/18 02/12/21 methylphenidate HCl 10 mg tablet 20 mg PO DAILY 11/11/18 02/12/21 (Ritalin) methadone 5 mg/5 mL oral solution 50 mg PO DAILY 08/30/19 02/12/21 omeprazole magnesium 20 mg 20 mg PO DAILY #14 tabs 02/04/21 tablet,delayed release (Prilosec OTC) sucralfate 1 gram tablet (Carafate) 1 gm PO QACHS #14 tabs 02/04/21 doxycycline hyclate 100 mg capsule 100 mg PO BID #20 caps 10/17/23 Previous Rx's Medication Instructions Recorded omeprazole magnesium 20 mg 20 mg PO DAILY #14 tabs 02/04/21 tablet,delayed release (Prilosec OTC) sucralfate 1 gram tablet (Carafate) 1 gm PO QACHS #14 tabs 02/04/21 doxycycline hyclate 100 mg capsule 100 mg PO BID #20 caps 10/17/23 Allergies Allergy/AdvReac Type Severity Reaction Status Date / Time No Known Allergies Allergy Unverified 02/04/21 19:26 General Stated Complaint: Cellulitis SABRA: 3 PFSH All Active Problems (Updated 10/17/23 @ 13:26 by TIARA Small) Cellulitis (Acute) Dental infection (Acute) Vomiting (Acute) Upper abdominal pain (Acute) Kidney stone on left side (Acute) Medical History (Updated 10/17/23 @ 13:26 by TIARA Small) 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 Narcotic abuse Asthma Surgical History No significant past surgical history Social History Smoking/Tobacco Use Status: Current every day Tobacco Type: cigarettes Smoking risk assessment performed?: Yes Alcohol Intake: current Alcohol Intake frequency: a few times a month Alcohol type: beer Drug use: Binges Substance use type: opiates Details: Goes to the Methadone clinic has been clean intermittently prior use 1 month ago Housing: other Do you feel safe at home: Yes Do you feel safe in your relationship?: Yes Course Vital Signs Vital signs: Vital Signs Temperature 36.7 C 10/17/23 12:16 Pulse 115 H 10/17/23 12:16 Respiratory Rate 16 10/17/23 12:16 Blood Pressure 103/62 10/17/23 12:16 Pulse Oximetry 97 10/17/23 12:16 Temperature 36.7 C 10/17/23 12:16 Temperature Source Temporal Artery Scan 10/17/23 12:16 Pulse 115 H 10/17/23 12:16 Respiratory Rate 16 10/17/23 12:16 Respiratory Effort Normal 10/17/23 12:43 Blood Pressure 103/62 10/17/23 12:16 Blood Pressure Position Sitting 10/17/23 12:16 Pulse Oximetry 97 10/17/23 12:16 Oxygen Delivery Method Room Air 10/17/23 12:16 Oxygen Flow Rate 0 10/17/23 12:16 PAWSS Have you Been Recently Intoxicated or Drunk Within the Last 30 days?: No Have you Ever Experienced Previous Episodes of Alcohol Withdrawal?: No Have you ever Experienced Withdrawal Seizures?: No Have you ever Experienced Delirium Tremens(DT)s?: No Have you ever undergone Alcohol Rehabilitation Treatment (i.e, inpt ot outpatient treatment programs)?: Yes Have you ever Experienced Blackouts?: No Have you ever Combined Alcohol with other Downers within the last 90 days?: Yes Have you ever Combined Alcohol with any other Substance of Abuse during the last 90 days?: Yes Positive Blood Alcohol level on Presentation? [PCS.BAL]: No Evidence of Increased Autonomic Activity (i.e. HR>120, tremor, sweating, agitation, nausea)?: No Result: 3
== END 2023-10-17 13:34 | disposition home or self-care (01) ==
PROVIDERS: Emergency Provider Physician Assistant; PCP Family Medicine
DX: L03.113 Cellulitis of right upper limb (principal); F11.11 Opioid abuse, in remission; F17.210 Nicotine dependence, cigarettes, uncomplicated
CPT/HCPCS: 99282

== ENCOUNTER 2024-03-30 10:03 | Emergency (ER) | payer MEDICAID, SELFPAY ==
[2024-03-30] VITALS (9 sets, daily range): BP systolic 130–168; BP diastolic 83–110; PULSE 86–103; RESP 18; TEMP 36.5; O2SAT 94–98
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
[2024-03-30] MEDS: Bacitracin 1 PACKET 4 PACKET TP (10:30)
--- NOTE | 2024-03-30 10:31 | NUR.NOTE ---
Nursing Note: Skin cleansed with sterile water and patted dry with sterile 4x4's. Bacitracin applied with patient education re keeping skin clean and application of topical antibiotics.
== END 2024-03-30 12:46 | disposition home or self-care (01) ==
PROVIDERS: Emergency Provider Student in an Organized Health Care Education/Training Program; PCP Family Medicine
DX: G50.1 Atypical facial pain (principal); T20.27XA Burn of second degree of neck, initial encounter; T20.26XA Burn of second degree of forehead and cheek, initial encounter; T31.0 Burns involving less than 10% of body surface; X19.XXXA Contact with other heat and hot substances, initial encounter
CPT/HCPCS: 99283

== ENCOUNTER 2025-04-18 19:50 | Emergency (ER) | payer MEDICAID, SELFPAY ==
[2025-04-18 19:54] VITALS: BP 153/92; PULSE 82; RESP 14; TEMP 37.2; O2SAT 98
[2025-04-18 20:34] VITALS: BP 153/92; PULSE 82; RESP 14; TEMP 37.2; O2SAT 98
--- NOTE | 2025-04-18 20:44 | W.ED.GENAD ---
Discharge Plan Disposition Patient Disposition: Home Discharge Details Clinical Impression: Dental infection Primary Care Provider: Rafael Strong ED Provider: Radha De La Paz Home Meds and New Rx's Prescriptions: New Orajel 2X Toothache-Gum 20-0.26 % gel See Rx Instructions .ROUTE .COMPLEX Qty: 7 0RF Rx Instructions: Apply a pea-sized amount to affected area/sore spot on gums. Use up to 4 times daily. Do not take more than directed. amoxicillin-pot clavulanate 875-125 mg tablet 1 tab PO BID Qty: 12 0RF No Action methadone 5 mg/5 mL Solution 190 mg PO DAILY gabapentin 400 mg capsule 400 mg PO TID Patient Comments: TAKE ONE CAPSULE BY MOUTH THREE TIMES A DAY fluoxetine 20 mg capsule 20 mg PO DAILY Patient Comments: TAKE ONE CAPSULE BY MOUTH EVERY DAY FOR ANXIETY trazodone 100 mg tablet 100 mg PO QHS Patient Comments: TAKE ONE TABLET BY MOUTH AT BEDTIME hydroxyzine HCl 25 mg tablet 25 mg PO TID PRN Patient Comments: TAKE ONE TABLET BY MOUTH THREE TIMES A DAY NEEDED FOR ANXIETY; OK TO TAKE TWO TABLETS BY MOUTH AT BEDTIME TO AID WITH SLEEP lurasidone 20 mg tablet 20 mg PO DAILY Patient Comments: TAKE ONE TABLET BY MOUTH EVERY EVENING FOR BIPOLAR DISORDER bupropion HCl 150 mg tablet sustained-release 12 hr 150 mg PO BID Patient Comments: TAKE ONE TABLET BY MOUTH TWICE A DAY Discharge Instructions Instructions: Dental Pain (DC) Additional Instructions: Please reach out to local dentists for evaluation/definitive management of your dental caries Please take the Augmentin for the full course as prescribed. Note that this may cause antibiotic associated diarrhea, so I recommend taking with yogurt or probiotic tablets. You may use ibuprofen 600 mg every 8 hours as needed for discomfort. Ice packs and Orajel may also be helpful. Return to emergency care if develop significant swelling in/around your mouth, difficulty breathing or swallowing, vision changes, swelling on one side of your neck, or if you are very worried and need to be rechecked immediately HPI General Date/Time Provider Initiated Documentation: 04/18/25 20:04. HPI Narrative: Erwin is a 34-year-old male presenting to the emergency department today for evaluation of dental pain. Reports severe pain in left upper front teeth for 3 days, sensitive to touch, hot, and cold. No fevers, chills, unusual headaches, vision changes, oral swelling, or ear pain. Last antibiotic treatment >3 months ago. Managing pain with ibuprofen and gabapentin. Requests Orajel prescription due to financial constraints. Last ibuprofen dose at 1730 hours. Related Data Home Medications ?Medication ?Instructions ?Recorded ?Confirmed methadone 5 mg/5 mL oral solution 190 mg PO DAILY 08/30/19 04/18/25 amoxicillin 875 mg-potassium 1 tab PO BID #12 tabs 04/18/25 clavulanate 125 mg tablet benzocaine 20 %-menthol 0.26 % See Rx Instructions .Route 04/18/25 mouth mucosal gel (Orajel 2X .COMPLEX #7 grams Toothache-Gum) bupropion HCl 150 mg tablet,12 hr 150 mg PO BID 04/18/25 04/18/25 sustained-release fluoxetine 20 mg capsule 20 mg PO DAILY 04/18/25 04/18/25 gabapentin 400 mg capsule 400 mg PO TID 04/18/25 04/18/25 hydroxyzine HCl 25 mg tablet 25 mg PO TID PRN 04/18/25 04/18/25 lurasidone 20 mg tablet 20 mg PO DAILY 04/18/25 04/18/25 trazodone 100 mg tablet 100 mg PO QHS 04/18/25 04/18/25 Previous Rx's ?Medication ?Instructions ?Recorded amoxicillin 875 mg-potassium 1 tab PO BID #12 tabs 04/18/25 clavulanate 125 mg tablet benzocaine 20 %-menthol 0.26 % See Rx Instructions .Route 04/18/25 mouth mucosal gel (Orajel 2X .COMPLEX #7 grams Toothache-Gum) Allergies Allergy/AdvReac Type Severity Reaction Status Date / Time No Known Allergies Allergy Verified 04/18/25 19:59 General Stated Complaint: DentalOral SABRA: 4 Exam Narrative Exam Narrative: General Appearance: Normal. Patient is alert and oriented, no acute distress Vital signs: Within normal limits. HEENT: Extensive dental decay, tenderness to palpation of left upper canine and incisor. No obvious gum swelling consistent with abscess. No pus drainage. No trismus. Clear voice. Neck: No cervical or submandibular lymphadenopathy Skin: Warm and dry, no rash. Psychiatric: Normal. Course Vital Signs Vital signs: Vital Signs Temperature 37.2 C 04/18/25 19:54 Pulse 82 04/18/25 19:54 Respiratory Rate 14 04/18/25 19:54 Blood Pressure 153/92 H 04/18/25 19:54 Pulse Oximetry 98 04/18/25 19:54 Temperature 37.2 C 04/18/25 20:34 Temperature Source Oral 04/18/25 20:34 Pulse 82 04/18/25 20:34 Respiratory Rate 14 04/18/25 20:34 Blood Pressure 153/92 H 04/18/25 20:34 Blood Pressure Position Sitting 04/18/25 20:34 Pulse Oximetry 98 04/18/25 20:34 Oxygen Delivery Method Room Air 04/18/25 20:34 Oxygen Flow Rate 0 04/18/25 20:34 Pain Level 10 04/18/25 20:34 Medical Decision Making Initial Assessment: 34-year-old male with significant dental pain in left upper front teeth, breaking repeatedly. Tenderness to palpation of left upper canines and incisors. No fever, chills, or ear pain. Hepatitis C noted. History and presentation consistent with dental infection due to extensive dental caries tenderness to palpation, broken teeth, no recent antibiotics. Plan: Prescribe Augmentin, provide first dose in ED, recommend follow-up with dentist. Advise ibuprofen 400 mg TID, apply ice pack, prescribe Orajel if possible. No red flags concerning for extension of infection into deep space, sepsis, or other serious complications requiring emergent diagnostic imaging or labs. ED Course: - Administered first dose of antibiotics. - Administered Tylenol. - Provided instructions for ibuprofen dosage and ice pack application. Final Assessment: Administered antibiotics and Tylenol for dental pain and potential infection. Advised on ibuprofen dosage and ice pack application. Provided list of local dentists for follow-up care. Clinical Impression: - Dental infection - Dental pain Disposition: Discharge home, advised to monitor for signs of worsening infection and return if symptoms occur. Follow-Up: Follow-up with dentist for further dental care. Patient Education: Advised on signs of worsening dental infection: increased swelling, fevers, chills, difficulty opening mouth, changes in voice. Instructed on ibuprofen dosage and ice pack application. 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
[2025-04-18] MEDS: Acetaminophen 500 MG TAB 1000 MG PO (20:52)
[2025-04-18] MEDS: Amox. 875/Clav. 125, 2 TABS/BTL 1 TAB PO (20:52)
[2025-04-18] MEDS: Benzocaine 20% Gel 30 GM JAR MM (21:00)
== END 2025-04-18 21:01 | disposition home or self-care (01) ==
PROVIDERS: Emergency Provider Nurse Practitioner Family; PCP Family Medicine
DX: R68.84 Jaw pain (principal); K04.7 Periapical abscess without sinus; Z59.811 Housing instability, housed, with risk of homelessness; Z59.82 Transportation insecurity; Z59.87 Material hardship due to limited financial resources, not elsewhere classified
CPT/HCPCS: 99283 ×2